=== PATIENT | male | born 1960 | race Caucasian/White ===

== ENCOUNTER → 2016-05-07 | Outpatient (CLI) | payer OTHER ==
[~2016-05-07] MED LIST: ALFU10TA30 PO; ASPI-232 PO; ATOR10TA88 PO; DIPH1TAB PO; FEXO1TAB46 PO; FLUO20CA35 PO; MISCCAP80 PO; MULTTAB PO; OMEG10007 PO; PRED20TA PO; SENNTAB23 PO; SERT50TA PO; ZNTT/150 PO; [UNRECOGNIZED DRUG - OTHER] PO
[2016-05-07 10:21] LABS: HEMATOCRIT 43.7 % (42-52); MEAN CELL VOLUME 88.8 fL (80-100); MEAN CORPUSCULAR HEMOGLOBIN 30.5 pg (25-34); MEAN CORPUSCULAR HGB CONC 34.3 g/dl (32-36); PLATELET COUNT 196 K/uL (130-400); RED BLOOD COUNT 4.92 M/uL (4.7-6.1); WHITE BLOOD COUNT 5.55 K/uL (4.8-10.8)
[2016-05-07 10:48] LABS: ALT/SGPT 36 U/L (12-78); AST/SGOT 15 U/L (15-37); BLOOD UREA NITROGEN 16 mg/dl (7-18); BUN/CREATININE RATIO 18.7 (10-20); CARBON DIOXIDE 27 mmol/L (21-32); CHLORIDE 109 mmol/L (98-107); CREATININE 0.86 mg/dl (0.60-1.40); GLUCOSE 109 mg/dl (70-99); SODIUM 144 mmol/L (136-145)
[2016-05-07 10:51] LABS: CHOLESTEROL 201 mg/dl (0-200); CHOLESTEROL/HDL RATIO 3.8; HDL CHOLESTEROL 53 mg/dl; LDL CHOLESTEROL CALCULATED 112 mg/dl; TRIGLYCERIDES 178 mg/dl (0-150); VERY LOW DENSITY LIPOPROT CALC 36 mg/dl
== END | disposition home or self-care (01) ==
LOC: C.LAB1850 08:57
PROVIDERS: ATTEND Internal Medicine
DX: Z01.818 Encounter for other preprocedural examination (principal); S62.611A Displaced fracture of proximal phalanx of left index finger, initial encounter for closed fracture; X58.XXXA Exposure to other specified factors, initial encounter

== ENCOUNTER → 2016-05-08 | Outpatient (CLI) | payer OTHER | END | disposition home or self-care (01) | LOC: C.CPL 08:52 | PROVIDERS: ATTEND Physician Assistant | DX: Z01.810 Encounter for preprocedural cardiovascular examination (principal); S62.611A Displaced fracture of proximal phalanx of left index finger, initial encounter for closed fracture; X58.XXXA Exposure to other specified factors, initial encounter ==

== ENCOUNTER → 2016-05-11 | Day surgery (SDC) | payer OTHER ==
[2016-05-08 08:13] VITALS: Ht 177.8 cm; Wt 122.7 kg
[~2016-05-11] VITALS: Ht 177.8 cm; Wt 122.7 kg
[~2016-05-11] MED LIST changes: +ATROPINE SULFATE 0.1 MG/ML 5ML SYR IV PRN; +BUPIVACAINE/EPINEPHRINE 0.5% MPF 1:200,000 30 ML VIAL ONE; +CEFAZOLIN 3000 MG/65 ML D5W IV SCH; +DEXAMETHASONE SOD INJ 4 MG/ML VIAL ONE; +EpHEDrine SULFATE INJ 50 MG/ML AMP IV PRN; +FENTANYL CITRATE INJ 50 MCG/1 ML 2 ML VIAL ONE; +LACTATED RINGER'S 1000ML 1,000 ML IV SCH; +LIDOCAINE HCL 1% 20 ML VIAL ONE; +LIDOCAINE HCL 2% 2 ML VIAL (20MG/ML) ONE; +MIDAZOLAM HCL 1 MG/ML 2ML VIAL ONE; +MoRPHine SULFATE 2 MG/ML CARP IV PRN; +MoRPHine SULFATE 4 MG/ML 1 ML CARP\\VIAL IV PRN; +ONDANSETRON INJ 2 MG/ML 2 ML VIAL IV PRN; +ONDANSETRON INJ 2 MG/ML 2 ML VIAL ONE; +OXYCODONE/ACETAMINOPHEN 5-325 TAB PO PRN; +PROPOFOL IV EMULSION 10 MG/ML 20 ML VIAL IV ONE
--- NOTE | 2016-05-11 06:37 | History & Physical Bridge - SC ---
H&P Re-Evaluation Bridge Note: I have examined the patient, reviewed the History & Physical and in the interval since the performance of the History & Physical I have noted the following changes of clinical significance: No changes noted
--- NOTE | 2016-05-11 08:37 | Discharge Instructions-SurgCtr ---
Discharge Instructions Date of Service May 11, 2016. Visit Reason for Visit: Left Index Finger Proximal Interphalangeal Fx Discharge Discharge Diagnosis / Problem: Status post ORIF Left Index Finger fracture Discharge Goals Goal(s): Decrease discomfort, Improve function, Increase independence Medications Stopped Medications Name(s): Stopped ASA 81mg Wednesday05/06/16 Activity Recommendations Activity Limitations: per Instructions/Follow-up section Lifting Limitations: until after follow-up appointment (No more than a cup of coffee) Exercise/Sports Limitations: rest today (and tomorrow. Unlimited legs and core.) Shower/Bathe: may shower/bathe in 3 days Driving or Machine Use: Not while in splint and not while taking narcotics Anesthesia . Post Anesthesia Instructions: If you have had General Anesthesia or IV Sedation: * Do not drive today. * Resume driving when surgeon permits. * Do not make important decisions or sign legal documents today. * Call surgeon for: 1. Temperature elevations greater than 101 degrees F. 2. Uncontrollable pain. 3. Excessive bleeding. 4. Persistent nausea and vomiting. 5. Medication intolerance (nausea, vomiting or rash). * For nausea and vomiting use only clear liquids such as: tea, soda, bouillon until nausea subsides, then gradually increase diet as tolerated. * If you have any concerns or questions, call your surgeon's office. If physician is unavailable and it is an emergency, call 911 or go to the nearest emergency room. . Instructions / Follow-Up Instructions / Follow-Up Dr. Colón in 10-15 days. PT in 2-3 days. Diet Recommendations Home Diet: resume previous diet Procedures Procedures Performed: Left Index Finger Open Reduction Internal Fixation Pending Studies Studies pending at discharge: no Work Instructions Additional Instructions: Return to work within 1-2 weeks depending on ability to drive. Medical Emergencies . Who to Call and When: Medical Emergencies: If at any time you feel your situation is an emergency, please call 911 immediately. . Non-Emergent Contact Non-Emergency issues call your: Surgeon Call Non-Emergent contact if: temperature is above 101.5, your pain is not controlled, wound has increased drainage, wound has increased redness . . "Provider Documentation" section prepared by Delfino Colón.
--- NOTE | 2016-05-11 08:40 | [facility] Operative Report ---
Operative Report Operative Date May 11, 2016. Pre-Operative Diagnosis Left Index Finger Proximal Interphalangeal Fracture Post-Operative Diagnosis Same Procedure(s) Performed Left Index Finger Open Reduction Internal Fixation Surgeon Dr. Julissa Colón Bindery Helper Surgeon(s) Dr. Darrin Zhang Estimated Blood Loss 3 cc Findings Displaced Left IF P1 fracture. Fluids (cc crystalloids) 1000 Specimens None Drains n/a Anesthesia LMA Complication(s) None Disposition Recovery Room / PACU (Stable) Implants 1.5 mm Cortical screws (11 & 12 mm from [employer] Mini-modular hand set). Indications The patient is a 56 year old male with a displaced left index finger proximal phalanx fracture, that I recommended surgical fixation. The patient understands the risks of surgery, which include but are not limited to: bleeding, infection , re-operation, damage to nerves and arteries, continued pain, progression of arthritis, mal-union, non-union, and stiffness. The patient understands all of these instructions and explanations, all of their questions have been satisfactorily addressed. The patient has elected to proceed with surgery and the informed consent was signed. Description of Procedure The patient was taken to the Operating Room and placed in the supine position on the operating table. After general anesthetic was administered a multidisciplinary time-out was performed identifying my initials on the left index finger as the correct and operative limb. Prior to the incision being made, 3 grams of intravenous Ancef were given. The left upper extremity was prepped and draped in the usual orthopaedic sterile fashion. The planned incision over the dorsum of the index proximal phalanx was marked and was then injected with 3 cc of a 50:50 mix of 1% Lidocaine with epi and 0.5 % Bupivacaine plain in addition a digital nerve block was performed using another 5cc of the above mixture. An Esmarch was used to exsanguinate the limb and a tourniquet was inflated to 250mmHg. The planned incision was carried down to the extensor mechanism. The extensor tendon was split centrally to expose the periosteum of the proximal phalanx. The fracture site was easily identified. The fragments were debrided of hematoma with dental pick, irrigation and suction. The two fragments were reduced with a pointed reduction clamp and confirmed with fluoroscopy. Two 1.5 mm lag screws were placed perpendicular to the fracture line in the standard fashion. The wound was copiously irrigated. Final Fluoro images were obtained showing near anatomic reduction with good placement of the screws. The periosteum was closed over the plate with 3-0 Vicryl. The extensor was closed with 3-0 Ti-Cron. The skin was closed with 4-0 Nylon using horizontal mattress stitch. The wound was dressed with Xeroform gauze, sterile gauze, sterile Marvin, sterile Webril, and a Radial gutter splint was placed. The sponge and needle counts were correct. He was taken to the recovery room in stable condition. Post-op Instructions: Pain medicine prescription was given pre-operatively to be taken as needed. The patient will follow up with me in 10-15 days. I attest to the content of the Intraoperative Record and any orders documented therein. Any exceptions are noted below.
[2016-05-11] MEDS: FENTANYL CITRATE INJ 50 MCG/1 ML 2 ML VIAL IV PRN ×2 (08:56→09:02)
[2016-05-11 09:22] VITALS: TEMP 36.4
--- NOTE | 2016-05-11 09:34 | Anesthesiology Progress Note ---
Anesthesia Post Op Note Date & Time May 11, 2016 at 09:34 Vital Signs Pain Intensity: 4 Vital Signs Past 12 Hours Date Time Temp Pulse Resp B/P Pulse Ox O2 Delivery O2 Flow Rate FiO2 05/11/16 09:16 36.7 71 13 05/11/16 09:16 71 13 96 05/11/16 09:15 132/81 05/11/16 09:11 74 8 96 05/11/16 09:11 74 8 05/11/16 09:10 127/80 05/11/16 09:06 73 3 05/11/16 09:06 72 3 94 05/11/16 09:05 133/81 05/11/16 09:01 69 13 99 05/11/16 09:01 69 13 05/11/16 09:00 132/82 05/11/16 08:56 72 3 99 05/11/16 08:56 72 3 05/11/16 08:55 133/80 05/11/16 08:51 70 14 99 05/11/16 08:51 70 14 05/11/16 08:50 134/79 05/11/16 08:47 36.4 75 16 137/67 99 Mask 6 05/11/16 08:46 75 8 05/11/16 08:46 75 8 99 05/11/16 06:35 36.8 81 18 158/98 97 Room Air Notes Mental Status: alert / awake / arousable, participated in evaluation Pt Amnestic to Procedure: Yes Nausea / Vomiting: adequately controlled Pain: adequately controlled Airway Patency, RR, SpO2: stable & adequate BP & HR: stable & adequate Hydration State: stable & adequate Anesthetic Complications: no major complications apparent
[2016-05-11 10:03] VITALS: BP 148/82; PULSE 67; O2SAT 95
== END | disposition home or self-care (01) ==
LOC: X.SURG 06:28
PROVIDERS: ATTEND Orthopaedic Surgery Sports Medicine
DX: S62.611A Displaced fracture of proximal phalanx of left index finger, initial encounter for closed fracture (principal); X58.XXXA Exposure to other specified factors, initial encounter; Y93.K1 Activity, walking an animal; E78.5 Hyperlipidemia, unspecified; M19.90 Unspecified osteoarthritis, unspecified site; E66.9 Obesity, unspecified; Z68.39 Body mass index [BMI] 39.0-39.9, adult; Z79.82 Long term (current) use of aspirin; Z79.899 Other long term (current) drug therapy

== ENCOUNTER → 2016-06-25 | Outpatient (CLI) | payer OTHER ==
[~2016-06-25] MED LIST changes: +ALFU10TA2 PO; -ALFU10TA30 PO; +ATOR10TA82 PO; -ATOR10TA88 PO; -ATROPINE SULFATE 0.1 MG/ML 5ML SYR IV PRN; -BUPIVACAINE/EPINEPHRINE 0.5% MPF 1:200,000 30 ML VIAL ONE; -CEFAZOLIN 3000 MG/65 ML D5W IV SCH; -DEXAMETHASONE SOD INJ 4 MG/ML VIAL ONE; -DIPH1TAB PO; +DIPH1TAB87 PO; -EpHEDrine SULFATE INJ 50 MG/ML AMP IV PRN; -FENTANYL CITRATE INJ 50 MCG/1 ML 2 ML VIAL ONE; -LACTATED RINGER'S 1000ML 1,000 ML IV SCH; -LIDOCAINE HCL 1% 20 ML VIAL ONE; -LIDOCAINE HCL 2% 2 ML VIAL (20MG/ML) ONE; -MIDAZOLAM HCL 1 MG/ML 2ML VIAL ONE; -MoRPHine SULFATE 2 MG/ML CARP IV PRN; -MoRPHine SULFATE 4 MG/ML 1 ML CARP\\VIAL IV PRN; -ONDANSETRON INJ 2 MG/ML 2 ML VIAL IV PRN; -ONDANSETRON INJ 2 MG/ML 2 ML VIAL ONE; -OXYCODONE/ACETAMINOPHEN 5-325 TAB PO PRN; -PROPOFOL IV EMULSION 10 MG/ML 20 ML VIAL IV ONE
== END | disposition home or self-care (01) ==
LOC: C.RDSM 14:18
PROVIDERS: ATTEND Orthopaedic Surgery Sports Medicine
DX: Z09 Encounter for follow-up examination after completed treatment for conditions other than malignant neoplasm (principal); M79.645 Pain in left finger(s)

== ENCOUNTER → 2016-08-06 | Outpatient (CLI) | payer OTHER | END | disposition home or self-care (01) | LOC: C.RDSM 15:44 | PROVIDERS: ATTEND Orthopaedic Surgery Sports Medicine | DX: M79.645 Pain in left finger(s) (principal) ==

== ENCOUNTER → 2016-09-11 | Outpatient (CLI) | payer OTHER ==
[~2016-09-11] MED LIST changes: -ALFU10TA2 PO; +ALFU10TA30 PO; -ATOR10TA82 PO; +ATOR10TA88 PO; +DIPH1TAB PO; -DIPH1TAB87 PO
--- NOTE | 2016-09-11 17:42 | DIAGNOSTIC IMAGING REPORT ---
KUB HISTORY: 56 years-old Male N20.0 Nephrolithiasis COMPARISON: IVP 08/26/2015 TECHNIQUE: KUB radiograph FINDINGS: Large calcification of the mid lower pelvis is again seen compatible with a prostatic calcification. There is no evidence of nephrolithiasis or ureteral calculi. The bowel gas pattern is nonobstructive. There is moderate volume of formed stool throughout the colon. There is mild convex left curvature of the lumbar spine without fracture. IMPRESSION: No evidence of nephrolithiasis or ureteral calculi. The above report was generated using voice recognition software. It may contain grammatical, syntax or spelling errors. Electronically signed by: Benjy Chavez M.D. 09/11/2016 5:41 PM Dictated Date/Time: 09/11/2016 5:39 PM
== END | disposition home or self-care (01) ==
LOC: C.RAD 17:17
PROVIDERS: ATTEND Urology
DX: N40.0 Benign prostatic hyperplasia without lower urinary tract symptoms (principal); N20.0 Calculus of kidney

== ENCOUNTER → 2016-11-09 | Outpatient (CLI) | payer OTHER ==
[2016-11-12 22:43] LABS: BEEF CLASS 0; BEEF IGE <0.10 KU/L; CASHEW CLASS 0; CASHEW IGE <0.10 KU/L; CHOCOLATE CLASS 0; CHOCOLATE IGE <0.10 KU/L; CLAM CLASS 0; CLAM IGE <0.10 KU/L; CORN CLASS 0/1; CORN IGE 0.15 KU/L; CRAB CLASS 0; CRAB IGE <0.10 KU/L; EGG MIX CLASS 0/1; HAZELNUT CLASS 0/1; LOBSTER CLASS 0; LOBSTER IGE <0.10 KU/L; PEANUT IGE <0.10 KU/L; PECAN NUT CLASS 0; PECAN NUT IGE <0.10 KU/L; PISTACHIO CLASS 0; PISTACHIO IGE <0.10 KU/L; PORK CLASS 0/1; PORK IGE 0.14 KU/L; RAST ALMOND CLASS 0; RAST ALMOND IGE <0.10 KU/L; RAST BRAZIL NUT CLASS 0/1; RAST BRAZIL NUT IGE 0.17 KU/L; SHRIMP CLASS 0/1; SOY CLASS 0; SOY IGE <0.10 KU/L; STRAWB ALLERGEN IGE 0.37 KU/L; STRAWB CLASS 1; WALNUT CLASS 0; WHEAT CLASS 0; WHEAT IGE <0.10 KU/L
== END | disposition home or self-care (01) ==
LOC: C.LAB1850 15:29
PROVIDERS: ATTEND Internal Medicine Pulmonary Disease
DX: T78.3XXA Angioneurotic edema, initial encounter (principal); X58.XXXA Exposure to other specified factors, initial encounter

== ENCOUNTER 2016-11-12 16:11 | Emergency (ER) | payer OTHER ==
[~2016-11-12] VITALS: Ht 177.8 cm; Wt 118.0 kg
[~2016-11-12 16:11] MED LIST changes: -DIPH1TAB PO; -FLUO20CA35 PO; -MISCCAP80 PO; -PRED20TA PO; -SENNTAB23 PO; -ZNTT/150 PO
[2016-11-12 16:12] VITALS: TEMP 36.5; Ht 177.8 cm; Wt 118.0 kg
[2016-11-12] MEDS ORDERED: RANITIDINE HCL 50 MG/100 ML D5W IV STA (16:28)
[2016-11-12] MEDS ORDERED: SODIUM CHLORIDE 0.9% 1000ML 1,000 ML IV STA (16:28)
[2016-11-12] MEDS ORDERED: DEXAMETHASONE SOD INJ 4 MG/ML VIAL IV STA (16:28)
[2016-11-12] MEDS ORDERED: DiphenhydrAMINE HCL 50 MG/ML VIAL IV STA (16:28)
--- NOTE | 2016-11-12 16:32 | EMERGENCY ROOM VISIT NOTE ---
History Report prepared by Colt: Nadia Cowan Under the Supervision of: Dr. Gary Ramires M.D. First contact with patient: 16:23 Chief Complaint: ALLERGIC REACTION Stated Complaint: ALLERGIC REACTION- SWELLED UPPER LIP Nursing Triage Summary: pt to the ED with c/o upper lip swelling that happened on last sat as well saw Dr lake and he did blood work pt doesnt take lisinopril took 2 benedryl at 2pm no difficulty swallowing History of Present Illness The patient is a 56 year old male who presents to the Emergency Room with complaints of a sudden allergic reaction beginning 5 days ago. The patient states that his lower lip swelled up 5 days ago. He reports that he went to [facility] and was discharged on prednisone, Pepcid, and Benadryl. He states that the lower lip swelling went away. He states that he did not take the Pepcid or Benadryl today, and that he finished the prednisone yesterday. Today he presents with a swollen upper lip. He reports that he has seasonal allergies , but has never had anything like this before. He denies any bug bites and trying new food. The patient denies chest pain, shortness of breath, fevers, chills, constipation, diarrhea, and trouble swallowing. The patient denies being on Lisinopril. Source of History: patient Onset: 5 days ago Position: lip Quality: other (allergic reaction ) Timing: other (sudden) Associated Symptoms: No chest pain, No SOB, No nausea, No vomiting, No diarrhea Review of Systems See HPI for pertinent positives and negatives. A total of ten systems were reviewed and were otherwise negative. Past Medical & Surgical Medical Problems: (1) enlarged prostate Family History No pertinent family history stated. Social History Smoking Status: Never Smoker Alcohol Use: occasionally Marital Status: in relationship Housing Status: lives with significant other Occupation Status: employed Current/Historical Medications Scheduled Alfuzosin Hcl (Uroxatral), 10 MG PO QAM Aspirin (Aspir-81), 81 MG PO QAM Atorvastatin (Lipitor), 10 MG PO QAM Fish Oil ([place]-3), 1 CAP PO QAM Fluoxetine (Prozac), 20 MG PO HS Multivitamins/Minerals (Mvi With Minerals), 1 TAB PO QAM Prednisone (Prednisone), 0 PO DAILY Probiotic Product (Probiotic), 1 CAP PO DAILY Ranitidine (Zantac), 1 TAB PO BID [Betasisterol], 1 TAB PO QAM Scheduled PRN Diphenhydramine Hcl (Benadryl Allergy), 1 TAB PO QID PRN for Itching Fexofenadine Hcl (Radha), 180 MG PO QAM PRN for ALLERGIES Sennosides-Docusate Sodium (Stool Softener), 1 TAB PO DAILY PRN for Constipation Allergies Coded Allergies: No Known Allergies (Unverified , 11/12/16) Physical Exam Vital Signs Date Time Temp Pulse Resp B/P (MAP) Pulse Ox O2 Delivery O2 Flow Rate FiO2 11/12/16 20:20 76 16 123/78 97 11/12/16 18:47 58 18 130/78 98 Room Air 11/12/16 17:30 59 11/12/16 16:46 100 Room Air 11/12/16 16:46 100 Room Air 11/12/16 16:12 36.5 64 18 152/87 97 Room Air Physical Exam GENERAL: Awake, alert, well-appearing, in no distress HENT: Normocephalic, atraumatic. Angioedema of upper lip, but no tongue elevation or trismus. No edema of the posterior pharynx. No stridor on auscultation. No pain with tracheal manipulation. EYES: Normal conjunctiva. Sclera non-icteric. NECK: Supple. No nuchal rigidity. FROM. No JVD. RESPIRATORY: Clear to auscultation. CARDIAC: Regular rate, normal rhythm. Extremities warm and well perfused. Pulses equal. ABDOMEN: Soft, non-distended. No tenderness to palpation. No rebound or guarding. No masses. RECTAL: Deferred. MUSCULOSKELETAL: Chest examination reveals no tenderness. The back is symmetrical on inspection without obvious abnormality. There is no CVA tenderness to palpation. No joint edema. LOWER EXTREMITIES: Calves are equal size bilaterally and non-tender. No edema. No discoloration. NEURO: Normal sensorium. No sensory or motor deficits noted. SKIN: No rash or jaundice noted. Medical Decision & Procedures Medications Administered Medications (Trade) Dose Ordered Sig/Geraldine Route Start Time Stop Time Status Last Admin Dose Admin Ranitidine HCl (zANTac IV) 50 mg NOW STAT IV 11/12/16 16:28 11/12/16 16:30 DC 11/12/16 16:40 50 MG Sodium Chloride 1,000 ml @ 999 mls/hr Q1H1M STAT IV 11/12/16 16:28 11/12/16 17:28 DC 11/12/16 16:40 999 MLS/HR Diphenhydramine HCl (Benadryl Inj) 50 mg NOW STAT IV 11/12/16 16:28 11/12/16 16:30 DC 11/12/16 16:41 50 MG Dexamethasone Sodium Phosphate (Decadron Inj) 10 mg NOW STAT IV 11/12/16 16:28 11/12/16 16:30 DC 11/12/16 16:41 10 MG ED Course 1624: The patient was evaluated in room B6. A complete history and physical exam was performed. 1627: Ordered Decadron Inj 10 mg IV, Benadryl Inj 50 mg IV, Sodium Chloride 1, 000 ml @ 999 mls/hr IV, Ranitidine HCl 50 mg IV. 1954: I checked on the patient and he is feeling better. 2009: I reevaluated the patient. Discussed results and discharge instructions: He verbalized understanding and agreement. The patient is ready for discharge. Medical Decision I reviewed the patient's past medical history, medications, and the nursing notes as described above.\ Differentials include: angioedema, allergic reaction, and anaphylaxis. The patient is a 48-year-old gentleman with a past medical history of [facility] emergency Department with angioedema of his upper lip in the setting of being seen at an outside hospital last week for angioedema of his lower lip history of present illness. Arrival patient is in no acute distress, afebrile with stable vital signs. EKG edema of the upper lip is present however no oral pharyngeal involvement without tongue elevation or trismus or edema in the posterior pharynx. No stridor or wheezing. She was given dexamethasone, Benadryl, Zantac good affect and significant improvement of his angioedema. The patient is already following with aircraft metalsmith who he saw yesterday and results are pending. Findings and plan for follow-up d/w patient. Patient agreeable and d/c'd per discharge instructions. Medication Reconcilliation Current Medication List: was personally reviewed by me Blood Pressure Screening Patient's blood pressure: Normal blood pressure Impression Primary Impression: Angio-edema Scribe Attestation The scribe's documentation has been prepared under my direction and personally reviewed by me in its entirety. I confirm that the note above accurately reflects all work, treatment, procedures, and medical decision making performed by me. Departure Information Dispostion Home / Self-Care Prescriptions Diphenhydramine Hcl (BENADRYL ALLERGY) 25 Mg Tab 1 TAB PO QID Y for Itching for 7 Days, #28 TABS Prov: Gary Ramires M.D. 11/12/16 Ranitidine (Zantac) 150 Mg Tab 1 TAB PO BID for 14 Days, #28 TAB 3 Refills Prov: Gary Ramires M.D. 11/12/16 Prednisone (Prednisone) 20 Mg Tab 0 PO DAILY, #14 TAB 3 TABS DAILY FOR 2 DAYS, THEN 2 TABS DAILY FOR 2 DAYS, THEN 1 TAB DAILY FOR 2 DAYS, THEN 1/2 TAB DAILY FOR 2 DAYS. Prov: Gary Ramires M.D. 11/12/16 Referrals No Doctor, Assigned (PCP) Forms HOME CARE DOCUMENTATION FORM, IMPORTANT VISIT INFORMATION Patient Instructions ED Angioedema, [facility] Additional Instructions Please follow up with your primary care physician and your aircraft metalsmith in the next 1-3 days for re-evaluation. Your symptoms improved with treatment. Otherwise, your exam did not show signs of an emergent condition at this time. Take prednisone, benadryl, and Zantac as directed. Return to the emergency department for worsening symptoms as described in the accompanying instructions.
[2016-11-12 16:46] VITALS: O2SAT 100
[2016-11-12] MEDS ORDERED: FLUO20CA35 PO (17:04)
[2016-11-12] MEDS ORDERED: SENNTAB23 PO (17:05)
[2016-11-12] MEDS ORDERED: MISCCAP80 PO (17:05)
[2016-11-12] MEDS ORDERED: ZNTT/150 PO (20:14)
[2016-11-12] MEDS ORDERED: DIPH1TAB PO (20:14)
[2016-11-12] MEDS ORDERED: PRED20TA PO (20:14)
[2016-11-12 20:20] VITALS: BP 123/78; PULSE 76; O2SAT 97
== END 2016-11-12 20:21 | disposition home or self-care (01) ==
LOC: C.EDB 16:12
DX: T78.3XXA Angioneurotic edema, initial encounter (principal); X58.XXXA Exposure to other specified factors, initial encounter; N40.0 Benign prostatic hyperplasia without lower urinary tract symptoms; Z79.82 Long term (current) use of aspirin

== ENCOUNTER → 2016-11-24 | Outpatient (CLI) | payer OTHER ==
[~2016-11-24] MED LIST changes: +DIPH1TAB PO; +FLUO20CA35 PO; +MISCCAP80 PO; +PRED20TA PO; +SENNTAB23 PO; -SERT50TA PO; +ZNTT/150 PO
[2016-11-24 12:43] LABS: ESTIMATED AVERAGE GLUCOSE 117 mg/dl; HA1C FLAG Normal (Normal)
[2016-11-24 12:49] LABS: ALT/SGPT 29 U/L (12-78); AST/SGOT 10 U/L (15-37); BLOOD UREA NITROGEN 17 mg/dl (7-18); BUN/CREATININE RATIO 21.2 (10-20); CALCIUM 8.7 mg/dl (8.5-10.1); CARBON DIOXIDE 26 mmol/L (21-32); CHLORIDE 107 mmol/L (98-107); CREATININE 0.81 mg/dl (0.60-1.40); GLUCOSE 94 mg/dl (70-99); POTASSIUM 4.1 mmol/L (3.5-5.1); SODIUM 139 mmol/L (136-145)
[2016-11-24 12:52] LABS: CHOLESTEROL 191 mg/dl (0-200); CHOLESTEROL/HDL RATIO 3.2; HDL CHOLESTEROL 60 mg/dl; LDL CHOLESTEROL CALCULATED 76 mg/dl; TRIGLYCERIDES 277 mg/dl (0-150); VERY LOW DENSITY LIPOPROT CALC 55 mg/dl
== END | disposition home or self-care (01) ==
LOC: C.LAB1850 11:02
PROVIDERS: ATTEND Internal Medicine
DX: R73.9 Hyperglycemia, unspecified (principal); E78.5 Hyperlipidemia, unspecified

== ENCOUNTER → 2016-12-03 | Outpatient (CLI) | payer OTHER ==
[2016-12-07 12:28] LABS: C1 ESTERASE INHIB TC298 34 mg/dL (21-39)
== END | disposition home or self-care (01) ==
LOC: C.LAB1850 14:13
PROVIDERS: ATTEND Physician Assistant Medical
DX: T78.3XXA Angioneurotic edema, initial encounter (principal); X58.XXXA Exposure to other specified factors, initial encounter

== ENCOUNTER → 2017-03-08 | Outpatient (CLI) | payer OTHER ==
[~2017-03-08] MED LIST changes: +ALFU10TA2 PO; -ALFU10TA30 PO; +ATOR10TA82 PO; -ATOR10TA88 PO; -DIPH1TAB PO; +DIPH1TAB87 PO
== END | disposition home or self-care (01) ==
LOC: C.RDSM 13:00
PROVIDERS: ATTEND Physical Medicine & Rehabilitation Sports Medicine
DX: M17.0 Bilateral primary osteoarthritis of knee (principal)

== ENCOUNTER → 2017-04-19 | Outpatient (CLI) | payer OTHER ==
[~2017-04-19] MED LIST changes: +RANI150T85 PO; -ZNTT/150 PO
[2017-04-19 09:49] LABS: HEMOGLOBIN A1C 5.7 % (4.5-5.6)
[2017-04-19 09:52] LABS: ALT/SGPT 25 U/L (12-78); AST/SGOT 11 U/L (15-37); BLOOD UREA NITROGEN 16 mg/dl (7-18); CALCIUM 9.4 mg/dl (8.5-10.1); CARBON DIOXIDE 24 mmol/L (21-32); CREATININE 0.86 mg/dl (0.60-1.40); GLUCOSE 114 mg/dl (70-99); POTASSIUM 3.8 mmol/L (3.5-5.1); SODIUM 140 mmol/L (136-145)
[2017-04-19 10:04] LABS: CHOLESTEROL 182 mg/dl (0-200); LDL CHOLESTEROL CALCULATED 92 mg/dl
== END | disposition home or self-care (01) ==
LOC: C.LAB1850 07:51
PROVIDERS: ATTEND Internal Medicine
DX: R73.9 Hyperglycemia, unspecified (principal); E78.5 Hyperlipidemia, unspecified

== ENCOUNTER → 2017-05-19 | Outpatient (CLI) | payer OTHER ==
[~2017-05-19] MED LIST changes: -PRED20TA PO
--- NOTE | 2017-05-19 13:11 | DIAGNOSTIC IMAGING REPORT ---
Brain MRA HISTORY: G50.0 Trigeminal neuralgia [id number] TECHNIQUE: 3-D [id number] MRA of the brain was performed without contrast. COMPARISON STUDY: Brain MRI 03/26/2010. FINDINGS: Visualized intracranial internal carotid arteries, distal vertebral arteries, and basilar artery are widely patent. There is no significant stenosis, occlusion, or aneurysm seen within the bilateral ACAs, MCAs, or system development engineer. IMPRESSION: No significant stenosis, occlusion, or aneurysm within the [place]. Electronically signed by: Aime Otero M.D. 05/19/2017 1:10 PM Dictated Date/Time: 05/19/2017 1:06 PM
--- NOTE | 2017-05-19 13:12 | DIAGNOSTIC IMAGING REPORT ---
BRAIN WITHOUT CONTRAST CLINICAL HISTORY: 57 years-old Male presenting with G50.0 Trigeminal neuralgia, facial numbness for 6 months. TECHNIQUE: Multisequence, multiplanar MR imaging of the brain was performed without the use of intravenous contrast. IV contrast: None. COMPARISON: 03/25/2010. FINDINGS: Meckel's caves are symmetric. Normal thickness of the bilateral trigeminal ganglia. Bilateral internal auditory canals with transiting nerves are also normal. Normal signal intensity of the inner ears structures. Ventricles and sulci normal in size. Brain parenchyma normal in appearance with preserved tolentino-white differentiation. No mass effect or midline shift. No restricted diffusion to suggest acute ischemia. No hemorrhage. No extra-axial fluid collection. T2 skull base flow voids preserved. Bone marrow signal intensity within the calvarium within normal limits. Trace fluid noted in the bilateral maxillary sinuses. IMPRESSION: 1. No acute intracranial abnormality. Normal noncontrast appearance of the trigeminal ganglia. Electronically signed by: Alfonso Robison M.D. 05/19/2017 1:11 PM Dictated Date/Time: 05/19/2017 1:06 PM
== END | disposition home or self-care (01) ==
LOC: C.CPL 11:46
PROVIDERS: ATTEND Internal Medicine
DX: R06.09 Other forms of dyspnea (principal); G50.0 Trigeminal neuralgia

== ENCOUNTER → 2017-05-26 | Outpatient (CLI) | payer OTHER ==
[~2017-05-26] MED LIST changes: +PERFLUTREN LIPID MICROSPHERE (DEFINITY) IV ONE
--- NOTE | 2017-05-26 17:26 | EXERCISE STRESS ECHO ---
*NOTICE TO RECEIVING LIBERTARIAN AGENCY This information is strictly Confidential and protected under [place] law. [place] law prohibits you from making any further disclosure of this information unless further disclosure is expressly permitted by the written consent of the person to whom it pertains or is authorized by law. A general authorization for the release of medical or other information is not sufficient for this purpose. Hospital accepts no responsibility if the information is made available to any other person, INCLUDING THE PATIENT. Interpretation Summary * Name: SARANYA DE LEON Study Date: 05/26/2017 09:38 AM BP: 138/90 mmHg * Patient Location: [facility] HR: 73 * : 1960 (M/d/yyyy) Gender: Male Height: 70 in * Age: 57 yrs Ethnicity: [place] Weight: 260 lb * Ordering Physician: Jake Mujica * Referring Physician: Jake Mujica * Performed By: Crystal Castaneda RDCS * * Reason For Study: DYSPNEA ON EXERTION * BSA: 2.3 m2 * -- Conclusions -- * 1. Negative exercise stress echo for ischemia at 97 % MPHR. * 2. Negative stress ECG for ischemia. * 3. Average functional capacity. Exercised 6:15 min, acheiving 7.3 METS. * 4. No exercise induced chest pain. Normal hemodynamic response to exercise. * 5. Normal resting LV size and function. Asymmetric basal septal hypertrophy. EF 55-60 %. Grade 1 diastolic dysfunction. Mildly dilated RV with normal function. No significant valvular pathology. Procedure Details * ECHOEX, CPT #[id number] * ECHO DOPPLER, CPT #[id number] * ECHO COLOR FLOW, CPT #[id number] * A contrast injection of Definity was performed to improve assessment of LV function. * Contrast was injected into an intravenous site in the left arm. * One vial of Definity ultrasound contrast was diluted in normal saline to a total volume of 10 ml. A total of '4' ml of solution was administered during imaging. * Lot # [id number] of Definity utilized for procedure. * Expiration date 06/03. * The attending nurse who injected the contrast agent was MIKALA HAQUE RN. Left Ventricular Findings with Stress * This was essentially a normal study. Left Ventricle * The left ventricle is grossly normal size. * There is moderate asymmetric left ventricular hypertrophy. * Ejection Fraction = 55-60%. Right Ventricle * The right ventricle is mildly dilated. * The right ventricular systolic function is normal as assessed by tricuspid annular plane systolic excursion (TAPSE) (normal >1.5 cm). Atria * The left atrial size is normal. * The right atrium is mildly dilated. * No ASD detected; PFO is not assessed. Mitral Valve * The mitral valve is grossly normal. * There is no mitral valve stenosis. * Significant mitral regurgitation is absent. Aortic Valve * The aortic valve is not well visualized. * No hemodynamically significant valvular aortic stenosis. * There is no significant aortic regurgitation. Pulmonic Valve * The pulmonary valve is inadequately visualized, but the Doppler data is adequate for interpretation. * Trace pulmonic valvular regurgitation. Great Vessels * The aortic root and proximal ascending aorta are normal sized. Pericardium * There is no pericardial effusion. Stress Parameters * Normal baseline electrocardiogram. * Stress ECG: No ST changes. No arrhythmias. * No arrhythmia were noted with stress. * Rest heart rate was '73' BPM. * Rest blood pressure was '138/90' * Maximum heart rate achieved was 157 bpm. * Maximum heart rate was 97 % of maximum age-predicted heart rate. * Maximum blood pressure was '198/79' * Total exercise time was '6:15' * Maximum exercise MET level achieved was '7.3' METS * Maximum treadmill speed was '3.30' miles per hour. * Maximum treadmill elevation was '14.00'% grade. * Exercise was terminated due to 'target heart rate achieved' * The patient exhibited dyspnea during exercise. Left Ventricular Findings with Stress * The study was technically good with many images being of high quality. Left Ventricular Diastolic Function * Grade I diastolic dysfunction, (abnormal relaxation pattern). MMode 2D Measurements and Calculations IVSd 2.0 cm IVSs 2.4 cm LVIDd 4.1 cm LVIDs 2.9 cm LVPWd 1.1 cm LVPWs 1.8 cm IVS/LVPW 1.9 FS 30.9 % EDV(Teich) 75.6 ml ESV(Teich) 31.0 ml EF(Teich) 59.0 % EDV(cubed) 70.6 ml ESV(cubed) 23.3 ml EF(cubed) 67.0 % % IVS thick 22.0 % % LVPW thick 73.5 % LV mass(C)d 251.9 grams LV mass(C)dI 107.9 grams/m\S\2 LV mass(C)s 283.6 grams LV mass(C)sI 121.6 grams/m\S\2 SV(Teich) 44.6 ml SI(Teich) 19.1 ml/m\S\2 SV(cubed) 47.3 ml SI(cubed) 20.3 ml/m\S\2 ACS 1.5 cm LA dimension 4.8 cm asc Aorta Diam 3.4 cm LVOT diam 1.9 cm LVOT area 2.8 cm\S\2 LVAd ap4 44.2 cm\S\2 LVLd ap4 9.4 cm EDV(MOD-sp4) 166.6 ml EDV(sp4-el) 177.2 ml LVAs ap4 24.8 cm\S\2 LVLs ap4 6.9 cm ESV(MOD-sp4) 74.1 ml ESV(sp4-el) 75.9 ml EF(MOD-sp4) 55.6 % EF(sp4-el) 57.2 % LVAd ap2 35.8 cm\S\2 LVLd ap2 8.9 cm EDV(MOD-sp2) 118.5 ml EDV(sp2-el) 122.0 ml LVAs ap2 22.0 cm\S\2 LVLs ap2 7.7 cm ESV(MOD-sp2) 52.3 ml ESV(sp2-el) 53.3 ml EF(MOD-sp2) 55.9 % EF(sp2-el) 56.3 % LVLd %diff -5.11 % EDV(MOD-bp) 145.4 ml LVLs %diff 10.6 % ESV(MOD-bp) 62.9 ml EF(MOD-bp) 56.7 % SV(MOD-sp4) 92.6 ml SI(MOD-sp4) 39.7 ml/m\S\2 SV(MOD-sp2) 66.2 ml SI(MOD-sp2) 28.4 ml/m\S\2 SV(MOD-bp) 82.5 ml SI(MOD-bp) 35.4 ml/m\S\2 SV(sp4-el) 101.3 ml SI(sp4-el) 43.4 ml/m\S\2 SV(sp2-el) 68.7 ml SI(sp2-el) 29.4 ml/m\S\2 Doppler Measurements and Calculations MV E max jya 57.8 cm/sec MV A max jay 73.1 cm/sec MV E/A 0.79 MV dec time 0.30 sec Ao V2 max 118.2 cm/sec Ao max PG 5.6 mmHg Ao max PG (full) 1.2 mmHg KESHA(V,A) 2.5 cm\S\2 KESHA(V,D) 2.5 cm\S\2 LV V1 max PG 4.4 mmHg LV V1 max 104.3 cm/sec PA V2 max 76.6 cm/sec PA max PG 2.3 mmHg
== END | disposition home or self-care (01) ==
LOC: C.CPL 09:31
PROVIDERS: ATTEND Internal Medicine
DX: I42.2 Other hypertrophic cardiomyopathy (principal); I50.30 Unspecified diastolic (congestive) heart failure; R06.09 Other forms of dyspnea

== ENCOUNTER → 2017-06-25 | Outpatient (CLI) | payer OTHER ==
[~2017-06-25] MED LIST changes: -PERFLUTREN LIPID MICROSPHERE (DEFINITY) IV ONE
== END | disposition home or self-care (01) ==
LOC: C.LAB1850 12:37
PROVIDERS: ATTEND Psychiatry & Neurology Neurology
DX: R20.0 Anesthesia of skin (principal)

== ENCOUNTER → 2017-06-29 | Outpatient (CLI) | payer OTHER | END | disposition home or self-care (01) | LOC: C.LAB1850 13:20 | PROVIDERS: ATTEND Psychiatry & Neurology Neurology | DX: R76.8 Other specified abnormal immunological findings in serum (principal) ==

== ENCOUNTER → 2017-09-01 | Outpatient (CLI) | payer OTHER ==
[2017-09-01 15:10] LABS: BLOOD UREA NITROGEN 14 mg/dl (7-18)
== END | disposition home or self-care (01) ==
LOC: C.LAB1850 12:57
PROVIDERS: ATTEND Urology
DX: N20.0 Calculus of kidney (principal)

== ENCOUNTER → 2017-09-01 | Outpatient (CLI) | payer OTHER ==
--- NOTE | 2017-09-01 16:38 | DIAGNOSTIC IMAGING REPORT ---
KUB CLINICAL HISTORY: N20.0 Nephrolithiasis nephrocalcinosis COMPARISON STUDY: 09/11/2016 FINDINGS: No change in the prostate calcifications described previously. Several pelvic vascular calcifications. Nonobstructive bowel pattern. No significant calcifications involving the upper urinary tracts. IMPRESSION: Negative study. Unchanged prostate calcification The above report was generated using voice recognition software. It may contain grammatical, syntax or spelling errors. Electronically signed by: J Carlos Larkin M.D. 09/01/2017 4:37 PM Dictated Date/Time: 09/01/2017 4:36 PM
== END | disposition home or self-care (01) ==
LOC: C.RAD 16:22
PROVIDERS: ATTEND Urology
DX: N20.0 Calculus of kidney (principal)

== ENCOUNTER 2022-12-15 05:19 | Observation (INO) ==
--- NOTE | 2022-11-17 12:17 | PAT Medication Instructions ---
Medication Instructions Date of Service November 17, 2022 Home Medications Medication Instructions Recorded alprazolam 0.5 mg tablet (Xanax) 0.5 mg PO DAILY PRN anxiety #30 05/08/21 tabs fluoxetine 20 mg capsule (Prozac) 20 mg PO QAM #90 caps 11/06/21 alfuzosin 10 mg tablet,extended 10 mg PO QAM 90 days #90 tabs 02/25/22 release 24 hr (Uroxatral) naproxen 500 mg tablet (Naprosyn) 500 mg PO DAILY PRN pain #90 tabs 04/10/22 atorvastatin 10 mg tablet 10 mg PO QAM #90 tabs 09/28/22 Medication List: fexofenadine-pseudoephedrine ER 180 mg-240 mg tablet,ext.release 24 hr (Radha- D 24 Hour) 1 tab PO QAM alprazolam 0.5 mg tablet (Xanax) 0.5 mg PO DAILY PRN anxiety fluoxetine 20 mg capsule (Prozac) 20 mg PO QAM alfuzosin 10 mg tablet,extended release 24 hr (Uroxatral) 10 mg PO QAM naproxen 500 mg tablet (Naprosyn) 500 mg PO DAILY PRN pain atorvastatin 10 mg tablet 10 mg PO QAM Medical Marijuana 1 dose inhalation DAILY PRN Anxiety cholecalciferol (vitamin D3) 25 mcg (1,000 unit) tablet (Vitamin D3) 25 mcg PO QAM losartan 25 mg tablet 25 mg PO QAM multivitamin 1 tab PO QAM MEDICATION INSTRUCTIONS: ASK your surgeon for instructions naproxen 500 mg tablet (Naprosyn) 500 mg PO DAILY PRN pain DO NOT take the morning of surgery cholecalciferol (vitamin D3) 25 mcg (1,000 unit) tablet (Vitamin D3) 25 mcg PO QAM losartan 25 mg tablet 25 mg PO QAM Medical Marijuana 1 dose inhalation DAILY PRN Anxiety fexofenadine-pseudoephedrine ER 180 mg-240 mg tablet,ext.release 24 hr (Radha- D 24 Hour) 1 tab PO QAM multivitamin 1 tab PO QAM Take morning of surgery With a small sip of water, OTHERWISE NOTHING TO EAT OR DRINK AFTER MIDNIGHT: atorvastatin 10 mg tablet 10 mg PO QAM alprazolam 0.5 mg tablet (Xanax) 0.5 mg PO DAILY PRN anxiety fluoxetine 20 mg capsule (Prozac) 20 mg PO QAM alfuzosin 10 mg tablet,extended release 24 hr (Uroxatral) 10 mg PO QAM Take evening before surgery Medical Marijuana 1 dose inhalation DAILY PRN Anxiety (if needed) alprazolam 0.5 mg tablet (Xanax) 0.5 mg PO DAILY PRN anxiety (if needed) Other Notes If you have any questions please call us at [phone] or [phone] or [phone] or [phone]
--- NOTE | 2022-11-23 09:16 | Anesthesiology Consultation ---
Date of Service November 23, 2022 Assessment & Plan (1) Encounter for pre-operative examination: - awaiting surgeon ordered [place] cardiology clearance 11/25/22. - allergy visit 08/31/22 [place]: "...Allergic contact dermatitis: Patch testing to metals was negative. He was also patch tested to a TRUE test panel and these were negative as well. As result, I do not have any worries about any exposures as part of surgery that would exacerbate an allergic contact dermatitis and he is cleared to get which ever product orthopedics would prefer. Allergic rhinitis due to animals: He will contact me if his allergic rhinitis symptoms worsen. Chronic idiopathic urticaria: He has not had any more episodes of idiopathic angioedema. If this ever comes back again, I recommend that he start taking a second-generation antihistamine like cetirizine and he will give me a call..." Chart Review Chart Review: Pending: Refer to Additional Notes / Consult section and Patient seen in Pre Admission Testing Teaching & Discussion Pre-Anesthesia Teaching/Discussion Notes: Instructed NPO after midnight before surgery, except medications with 15 cc of water. Medication instructions provided according to the PAT guidelines. History Surgery Operation Date: 12/15/22 07:00 Proposed Procedures p Left Total Knee Arthroplasty - Alfonso Dawn MD Height/Weight Height: 5 ft 10 in Weight: 113.9 kg Allergies Allergy/AdvReac Type Severity Reaction Status Date / Time No Known Drug Allergies Allergy Unknown Verified 11/16/22 12:48 Medications Home Medications Medication Instructions Recorded Confirmed Last Taken fexofenadine-pseudoephedrine ER 1 tab PO QAM 07/18/20 11/16/22 01/19/21 180 mg-240 mg tablet,ext.release 24 hr (Radha-D 24 Hour) alprazolam 0.5 mg tablet (Xanax) 0.5 mg PO DAILY PRN anxiety #30 05/08/21 11/16/22 Unknown tabs fluoxetine 20 mg capsule (Prozac) 20 mg PO QAM #90 caps 11/06/21 11/16/22 Unknown alfuzosin 10 mg tablet,extended 10 mg PO QAM 90 days #90 tabs 02/25/22 11/16/22 Unknown release 24 hr (Uroxatral) naproxen 500 mg tablet (Naprosyn) 500 mg PO DAILY PRN pain #90 tabs 04/10/22 11/16/22 Unknown atorvastatin 10 mg tablet 10 mg PO QAM #90 tabs 09/28/22 11/16/22 Unknown Medical Marijuana 1 dose inhalation DAILY PRN Anxiety 11/16/22 11/16/22 Unknown cholecalciferol (vitamin D3) 25 25 mcg PO QAM 11/16/22 11/16/22 Unknown mcg (1,000 unit) tablet (Vitamin D3) losartan 25 mg tablet 25 mg PO QAM 11/16/22 11/16/22 Unknown multivitamin 1 tab PO QAM 11/16/22 11/16/22 Unknown Additional Notes: Pt states he takes Radha D for seasonal allergies, not advised for idiopathic urticaria hx. Past Medical History Medical History Anxiety Depression Diverticulitis hx Enlarged prostate Hearing loss History of basal cell cancer s/p excision History of COVID-19 Suspected COVID 02/2020 (spouse tested positive/pt did not personally get tested) > symptoms at time of low grade fever, chills, body aches, decreased smell > recovered at home/symptoms resolved Hyperlipidemia Hypertension controlled, stable per pt Idiopathic urticaria hx, h/o angioedema 5+ years ago followed with immunology and was d/c by [facility] Internal hemorrhoids hx Left bundle branch block (LBBB) diagnosed 05/01/21--follows with Jovanny Mares Medical marijuana use Nephrolithiasis hx, last episode 5+ years ago Obesity Sleep apnea "Mild" > no device Patient denies h/o stroke, seizures, heart attack, heart failure, DM, blood clots/DVTs or blood transfusions. Exercise / Class Metabolic Activity II 4-5 Yardwork/Stairs/Walk up hill (denies chest discomfort or shortness of breath with 1 FOS) Past Family History Family History Grandfather Colorectal cancer Mother Rheumatoid arthritis Other No family history of adverse response to anesthesia Denies family history of Ovarian cancer Prostate cancer Myocardial infarction Breast cancer Past Surgical History Surgical History History of cardiac cath 05/14/21 @ [facility] for angina/LBBB--no stents placed---follows with Jovanny Mares History of colonoscopy History of cystoscopy with urolift @ [facility] 07/25/20 History of hand surgery Right History of lithotripsy History of open reduction and internal fixation (ORIF) procedure Left index finger ORIF (05/11/16): LMA#5 at [facility] [place] S/P anal fissurectomy Past Anesthesia History No Hx of Anesthesia Complications and No Family Hx of Anesthesia Complications History of PONV No Hx of PONV and No Hx of Motion Sickness Social History Smoking Status: Current some day smoker (occasional cigar) tobacco type: smokeless tobacco Do You Dip or Chew Tobacco: No (quit "a couple years ago") Smoking End Date: quit 30yrs ago Hx Alcohol Use: Yes Alcohol type: beer and wine alcohol intake frequency: a few times a month Hx Substance Use: Yes (medical marijuana) substance use type: marijuana Substance Use Type Other:: Medical marijuana (+card)- 1-2x/week (inhalation)- advised Review of Systems Patient denies chest pain, shortness of breath, dyspnea on exertion, reflux, fever, chills, cough, wheezing, or palpitations. Physical Exam Vital Signs Vitals BP 137/74 P 56 TEMP 97.9 SP02 96% on RA RESP 18 Physical Patient resting comfortably in chair in no acute distress, alert and oriented, responding appropriately throughout visit Full cervical extension range of motion without pain TMD 3.5 finger breadths Mallampati Score 2 Dentition: chipped right upper tooth and several caps/crowns, denies loose teeth, implants or bridges Lungs: normal respiratory effort. Good air movement, clear throughout to auscultation, no adventitious breath sounds Cardiac: regular rate and rhythm, no murmurs noted Carotid arteries: negative bruit bilat Lab Results Anesthesia Preop Results Results Anesthesia Widget: WBC 5.55 K/ul (4.8-10.8) 11/23/22 Hgb 13.8 g/dl (14.0-18.0) L 11/23/22 Hct 40.5 % (42.0-52.0) L 11/23/22 Plt 208 K/uL (130-400) 11/23/22 Na 136 mmol/L (136-145) 11/05/22 K 3.9 mmol/L (3.5-5.1) 11/05/22 Cl 107 mmol/L (98-107) 11/05/22 CO2 25 mmol/L (21-32) 11/05/22 BUN 19 mg/dl (6-23) 11/05/22 Creat 0.88 mg/dl (0.6-1.4) 11/05/22 Glucose Level 121 mg/dl (70-99(Fasting)) H 11/05/22 PT 10.3 Seconds (9.0-12.0) 11/23/22 PTT 26.5 Seconds (21.0-31.0) 11/23/22 INR 0.9 (0.9-1.1) 11/23/22 TSH 1.617 uIu/ml (0.300-4.500) 11/05/22 HA1c 5.4 % (4.5-5.6) 11/05/22 Blood Type O Negative 11/23/22 Antibody Screen NEGATIVE 11/23/22 Testing Electrocardiogram Date: 07/02/22 Sinus bradycardia, rate 57 bpm Left axis deviation LBBB Chest X-Ray Date: 11/23/22 No acute cardiopulmonary findings. Echocardiogram Date: 07/02/22 EF 50-55% Abnormal septal motion Mild cLVH No significant valvular pathology Cardiac Catheterization Date: 05/14/21 LM -normal caliber, no significant disease LAD -medium caliber, angiographically normal. Distal vessel wraps around apex. Medium D1 without disease. Ramusmedium caliber, no significant disease Circumflexmedium caliber, mid segment luminal irregularities. RCA -dominant, large caliber, angiographically normal 1. Angiographically normal coronary arteries 2. Normal intracardiac filling pressure
[2022-12-15] MEDS ORDERED: METOCLOPRAMIDE HCL 10 MG TABLET PO SCH (06:00)
[2022-12-15] MEDS ORDERED: cloNIDine HCL 0.1 MG/24 HR TRANSDERM SYS TD SCH (06:00)
[2022-12-15] MEDS ORDERED: dexAMETHasone 4 MG TAB PO SCH (06:00)
[2022-12-15] MEDS ORDERED: ACETAMINOPHEN 500 MG TAB PO SCH (06:00)
[2022-12-15] MEDS ORDERED: TRANEXAMIC ACID 1,000 MG **IV Pre-op IV SCH (06:00)
[2022-12-15] MEDS ORDERED: ceFAZolin 2000MG 2,000 MG/15 ML SYR IV SCH (06:00)
[2022-12-15] MEDS ORDERED: traMADol HCL 50 MG TABLET PO SCH (06:00)
[2022-12-15] MEDS ORDERED: GABAPENTIN 600 MG DOSE PO SCH (06:00)
[2022-12-15] MEDS ORDERED: LR 60ML/HR IV SCH (06:00)
[2022-12-15] MEDS ORDERED: CeleBREX 200 MG CAP PO SCH (06:00)
[2022-12-15] MEDS ORDERED: FAMOTIDINE 20 MG TAB PO SCH (06:00)
[2022-12-15] MEDS ORDERED: ROPIVACAINE 0.5% HCL/PF 150 MG, BUPIVACAINE 0.75% MPF 20 ML, EPINEPHrine 0.15 MG, Ketor... INFIL SCH (06:00)
[2022-12-15] MEDS ORDERED: oxyCODONE HCL 10 MG TABCR (OxyCONTIN) PO SCH (06:00)
[2022-12-15] MEDS ORDERED: LR 500ML BOLUS, THEN 15ML/HR IV SCH (06:00)
[2022-12-15] MEDS ORDERED: BUPIVACAINE 0.25% PF 30 ML VIAL ONE (06:21)
[2022-12-15] MEDS ORDERED: BUPIVACAINE 0.5 % 5 MG/1 ML PF 10ML VIAL ONE (06:21)
[2022-12-15] MEDS ORDERED: ONDANSETRON INJ 2 MG/ML 2 ML VIAL IV PRN ×2 (06:36→11:57)
[2022-12-15] MEDS ORDERED: ePHEDrine sulfate 50 MG/ML AMP IV PRN (06:36)
[2022-12-15] MEDS ORDERED: ATROPINE SULFATE 0.1 MG/ML 10ML SYR IV PRN (06:36)
[2022-12-15] MEDS ORDERED: fentaNYL citrate PF 100 MCG/2 ML VIAL IV PRN (06:36)
[2022-12-15] MEDS ORDERED: MIDAZOLAM HCL 1 MG/ML 2ML VIAL ONE ×2 (06:37→07:01)
[2022-12-15] MEDS ORDERED: fentaNYL citrate PF 100 MCG/2 ML VIAL ONE (06:37)
--- NOTE | 2022-12-15 06:43 | History & Physical Bridge Note ---
Date of Service December 15, 2022 History & Physical Bridge Note I have examined the patient, reviewed the History & Physical and in the interval since the performance of the History & Physical I have noted the following changes of clinical significance: no changes noted
[2022-12-15] MEDS ORDERED: VANCOMYCIN HCL 1000MG/20ML VIAL ONE (07:05)
[2022-12-15] MEDS ORDERED: ORTHO JOINT ANESTHETIC ONE (07:05)
--- NOTE | 2022-12-15 10:00 | Operative Report ---
Post Operative Report Pre & Post Diagnosis Operation Date: 12/15/22 07:00 Pre-Op Diagnosis: Left Knee Osteoarthritis Post-Op Diagnosis: Left Knee Osteoarthritis I identified the patient and participated in the time-out.: Yes Procedure Operation Date: 12/15/22 07:00 Actual Procedures p Left Total Knee Arthroplasty(Left) - Alfonso Dawn MD Surgeon Alfonso Dawn MD Bioprocess Development Engineer Eva Herman physicians promotional advertising assistant no resident or fellow available Estimated Blood Loss 5 Findings Consistent with Post-Op Diagnosis Specimens Resected bone and soft tissue Anesthesia Type MAC Spinal Regional Complications none Disposition Accompanied Patient To Recovery: No Disposition: Recovery Room Indications Chavo is 62. Severe left knee arthritis refractory to nonsurgical treatment. He wishes to have his knee replaced. Description of Procedure Informed consent. Patient identified. Left knee identified as operative site. I marked with my initials. Preop timeout performed. Preop dose of IV antibiotics given. Positioned supine on the OR table. Anesthetic administered. Bump under the left calf and left hip. Tourniquet left thigh. Exam shows no pathological laxity. Range of motion 0/7/120. Prepped and draped in the usual sterile fashion. DVT prophylaxis Intra-Op with foot pumps. Postop early mobility mechanical devices and Eliquis. Limb exsanguinated with Esmarch. Tourniquet inflated to 275 mmHg. A midline longitudinal incision was made followed by medial parapatellar arthrotomy. An extensile medial release was performed. Soft tissue on the anterior aspect of the distal femur was resected. Flocculent red synovitis was noted throughout the knee and was excised as encountered. The synovial reflection in the lateral gutter was released. There was severe arthritis of the patella with large marginal osteophytes circumferentially which were thoroughly debrided down to the [place] patellar bone. Patellar thickness measured 23 mm. There was grade 3 and 4 chondrosis of the patella. Soft tissue around the patella itself was debrided. The retropatellar fat pad was resected. The knee was able to be flexed with the patella everted and the cruciate ligaments and the remainder of the osteophytes were debrided. There were marginal osteophytes throughout the knee both on the lateral and medial side. There was grade 4 change with wear in the medial central tibia 2-1/2 cm in diameter. The weightbearing area of the medial femoral condyle 2 to 3 cm wide by 4 cm and the length anterior to posterior was eburnated bone. The lateral femoral condyle showed grade 2 and 3 chondrosis. The lateral meniscus was deficient as was the medial meniscus. There was posterior central change of the tibial plateau which I would estimate to be essentially grade 4 lesion. Notch osteophytes removed. ACL was absent. The cruciate remnants and the PCL were excised and the tibia was subluxated. A automatic pilot mechanic hole was drilled into the proximal tibia just in front of the tibial spines. The intramedullary alignment indy was inserted completely. The cutting jig was applied. A 0 degree block. Aligned with the tibial tubercle. Knee was held in neutral rotation and the guide was pinned into place. This was set to resect 10 mm off of the lateral side which corresponded to about a 4 to 6 mm cut on the medial side. The extra medullary alignment indy was utilized to confirm appropriate slope as well as coronal plane alignment. Bisected ankle joint. Intersected second ray. The cut was then made and remaining marginal osteophytes were removed. The tibia was sized to a 3. A automatic pilot mechanic hole was drilled into the distal femur just above the PCL. Slightly more central based upon preop templating. The guide was inserted and a 6 degree left knee valgus angle 14 mm thick cut which was proximal to the collateral ligaments. Cut was made and the extension gap was 10 but tight posteriorly. I went ahead and did a more extensile medial release around the posterior medial corner releasing the semimembranosus as well as the medial head of the posterior medial capsule. I felt that the tightness in extension was secondary to the posterior osteophytes. The epicondylar axis was marked out. The distal femoral sizing guide was applied and sized to a 3. The external rotation drill holes were made and matched the epicondylar axis. The size 3 anterior cutting block was applied. Anterior down. This cut was made protecting the collateral ligaments. The flexion gap was asymmetric. I was confident that the rotation was appropriate based upon the epicondylar axis. The component was not externally rotated. Perhaps this was related to the not insignificant lateral compartment arthritis. To correct this I released the popliteus which gave some increased laxity. I then made multiple perforations into the LCL with an 18-gauge spinal needle and this then resulted in a symmetrical flexion gap of 10 mm in thickness. The box cutting guide was applied lateralized and the cut was made. Large posterior medial and smaller lateral osteophytes were excised. The extension gap was a symmetric 10 mm without springing. Femoral component applied. The tibia was prepared with the keel and punch and trialing was performed which showed full extension no laxity at 0 or 90. Trace MCL laxity and 1+ LCL laxity in mid position. The patella tracked well. The patellar jig was set to preserve 15 mm of bone. The patella cut was made and the component was distal lysed and medialized. Sized with 38. The lug holes were drilled and patellar tracking was slightly off with the no hands technique. This was corrected once the tourniquet was let down and the patellar tracking at that time was fine. The residual thickness of the patella was 14 mm. At the conclusion of the procedure the composite patellar thickness was 22 mm. The trial components were removed the canals were plugged Ortho joint mix injected into the back of the knee copious irrigation was performed and the bony surfaces were meticulously prepared. Soft tissues were kept moist throughout the surgical procedure. 2 bags of Simplex P cement were mixed and then while in a doughy state they were the components were cemented into place femur tibia and then patella. Smears were placed on the posterior condyles. The knee was held in full extension until the cemented hardened and the tourniquet was let down after 110 minutes of inflation. Meticulous hemostasis was performed. The remainder of the Ortho joint mix was injected about the knee. Trialing was again performed and the 10 mm spacer was satisfactory. The knee was subluxated the back the knee was irrigated and cement was removed from the back of the knee as encountered. The final polyethylene was inserted. Patellar tracking was fine. [place] assisted flexion with extensor mechanism closed was approximately 120 degrees. The knee was straight and had full extension. The extensor mechanism was closed with interrupted #2 FiberWire's above the equator the patella and running and interrupted #1 Vicryl below. The skin was closed in layers with 0 and 2-0 Vicryl followed by elaine on the skin. The leg was cleaned with wet and dry sponges and soft sterile dressings applied Xeroform 4 x 4's ABD soft wrap Kobi wrap and a knee immobilizer. Patient was then awakened from anesthesia difficulty and taken to the recovery room in stable condition. The resected bone and soft tissue was sent for specimen. There were no drains. Counts were correct and blood loss is estimated to be 5 cc. TXA given at the beginning of the case. No complications. He will be admitted to the hospital and rehab according to the standard total knee protocol. Components inserted with a J[employer]J PFC Sigma rotating platform knee a size 38 3 peg oval dome patella size 3 left posterior stabilized femur and a size 3 mobile- bearing keeled tibial tray with a 10 mm thick size 3 posterior stabilized polyethylene insert I attest to the content of the Intraoperative Record and any orders documented therein. Any exceptions are noted below.
--- NOTE | 2022-12-15 10:20 | Operative Report ---
Post Operative Report Pre & Post Diagnosis Operation Date: 12/15/22 07:00 Pre-Op Diagnosis: Left Knee Osteoarthritis Post-Op Diagnosis: Left Knee Osteoarthritis I identified the patient and participated in the time-out.: Yes Procedure Operation Date: 12/15/22 07:00 Actual Procedures p Left Total Knee Arthroplasty(Left) - Alfonso Dawn MD Surgeon Alfonso Dawn M.D. [employer] Attendant Eva Herman physicians rn first assistant no resident or fellow available Estimated Blood Loss 5 Findings Consistent with Post-Op Diagnosis DJD left knee Specimens bone and soft tissue Anesthesia Type MAC Spinal Regional Description of Procedure Patient was taken to the operating room and placed under IV sedation with spinal anesthesia and a peripheral nerve block. Timeout was performed. He is given 2 g of IV Ancef for surgical prophylaxis. He was prepped and draped in routine sterile fashion. I was present during the entire case and assisted with positioning, tissue retraction, implantation of hardware, cementing, closure and dressings. Please see Dr. Dawn's operative report for further details regarding today's procedure. Patient was awakened and transferred to the recovery room in stable condition. I attest to the content of the Intraoperative Record and any orders documented therein. Any exceptions are noted below.
--- NOTE | 2022-12-15 10:39 | XRay Report ---
XR knee LT 1 or 2V routine CLINICAL HISTORY: Surgical Post Op TECHNIQUE: 2 views of the right knee were obtained. Comparison: Comparison is made to leg length study 12/03/2022 FINDINGS: Patient is status post total knee arthroplasty with expected postsurgical changes including soft tiss ue swelling and subcutaneous emphysema. No periarticular lucency or hardware fracture is seen. IMPRESSION: Expected postoperative appearance status post placement of total knee arthroplasty. ACT 112: Negative or not required by law. Electronically signed by: Julio César Velázquez M.D. 12/15/2022 10:38 AM
[2022-12-15] MEDS ORDERED: hydrALAZINE HCL 20 MG/ML VIAL IV PRN (11:57)
[2022-12-15] MEDS ORDERED: bisacodyL 10 MG SUPP PR PRN (11:57)
[2022-12-15] MEDS ORDERED: MAGNESIUM HYDROXIDE SUSP 30 ML UDC PO PRN (11:57)
[2022-12-15] MEDS ORDERED: ALPRAZolam 0.5 MG TABLET PO PRN (11:57)
[2022-12-15] MEDS ORDERED: traMADol HCL 50 MG TABLET PO PRN (11:57)
[2022-12-15] MEDS ORDERED: HYDROmorphone INJ 1 MG/ML SYRINGE IV PRN (11:57)
[2022-12-15] MEDS ORDERED: NALOXONE HCL 0.4 MG/1 ML VIAL/CARP IV PRN (11:57)
[2022-12-15] MEDS ORDERED: HYDROmorphone INJ 0.5 MG/0.5 ML SYR IV PRN (11:57)
--- NOTE | 2022-12-15 12:18 | Anesthesiology Progress Note ---
Date of Service December 15, 2022 Anesthesia Post Procedure Vital Signs Vital Signs: Temp Pulse Pulse Resp BP Pulse Ox O2 Del Method 12/15/22 12:14 36.2 C L 55 L 18 148/86 H 96 Room Air 12/15/22 11:50 36.2 C L 53 L 16 121/65 96 Room Air 12/15/22 11:50 36.2 C L 55 L 53 L 16 121/65 96 Room Air 12/15/22 11:30 36.4 C L 55 L 12 124/62 93 Room Air 12/15/22 11:15 52 L 19 128/67 98 Room Air 12/15/22 11:00 53 L 16 129/71 97 Room Air 12/15/22 10:50 53 L 18 127/70 94 Room Air 12/15/22 10:40 36.3 C L 56 L 18 129/73 98 Room Air 12/15/22 10:30 58 L 15 113/58 L 95 Room Air 12/15/22 10:20 56 L 14 122/72 99 Oxymask 12/15/22 10:10 36 C L 57 L 21 115/62 97 Oxymask 12/15/22 05:43 36.6 C 65 20 135/79 95 Room Air O2 Flow Rate 12/15/22 12:14 12/15/22 11:50 12/15/22 11:50 12/15/22 11:30 12/15/22 11:15 12/15/22 11:00 12/15/22 10:50 12/15/22 10:40 12/15/22 10:30 12/15/22 10:20 3 12/15/22 10:10 6 12/15/22 05:43 Pain Intensity Left Knee: Pain Intensity: 3 Transfer of Care Handoff Completed per policy Notes Mental Status: alert / awake / arousable Patient Amnestic to Procedure: Yes Nausea / Vomiting: adequately controlled Pain: adequately controlled Airway Patency, RR, SpO2: stable & adequate BP & HR: stable & adequate Hydration State: stable & adequate Neuraxial Anesthesia: was administered and sensory block is resolving Anesthetic Complications: no major complications apparent and Pt Satisfied with anesthetic care
[2022-12-15] MEDS: SODIUM CHLORIDE 0.9% 1,000 ML IV SCH ×2 (12:34→23:18)
[2022-12-15] MEDS: CHECK CLONIDINE PATCH PLACEMENT SCH ×2 (12:34→12:35)
[2022-12-15] MEDS ORDERED: PROPOFOL IV EMULSION 10 MG/ML 20 ML VIAL IV ONE (13:09)
[2022-12-15] MEDS ORDERED: ONDANSETRON INJ 2 MG/ML 2 ML VIAL ONE (13:09)
[2022-12-15] MEDS ORDERED: LIDOCAINE 2% 2 ML VIAL/AMP(20MG/ML) INFIL ONE (13:10)
[2022-12-15] MEDS: ACETAMINOPHEN 500 MG TAB PO SCH ×2 (13:58→21:48)
[2022-12-15] MEDS: ceFAZolin 2000MG 2,000 MG/15 ML SYR IV SCH ×2 (14:52→23:07)
[2022-12-15] MEDS: oxyCODONE HCL IR 5 MG TAB (IMMEDIATE RELEASE) PO PRN ×2 (15:56→19:59)
--- NOTE | 2022-12-15 15:58 | Orthopedic Progress Note ---
Date of Service December 15, 2022 Assessment & Plan (1) Status post total left knee replacement: Plan: Postop day 0-left total knee arthroplasty by Dr. Dawn Patient may be out of bed, weight-bear as tolerated on left lower extremity with the assistance of a walker and knee immobilizer on left leg when out of bed. Eliquis to start in the morning for DVT prophylaxis. MARCELO stockings and AV impulse boots. Pain medication as prescribed. Regular diet. Home medications have been continued. PT/OT to start tomorrow. May do some bedside exercises taught by nursing overnight. Ice as needed for pain and swelling. Elevation as needed for swelling. Postoperative x-rays were reviewed with patient. All questions were answered. Dr. Dawn present for today's visit. Plan for discharge to his home tomorrow with home health if doing well and pain controlled. Admission and Anticipated Discharge Date Admission Date: December 15, 2022 Subjective Chavo is doing well after his surgery. He ambulated to the bathroom with nursing. Denies any significant pain in his left knee besides in the back. He is not had any postoperative nausea or vomiting. Denies any chest pain or shortness of breath. Physical Exam Musculoskeletal: Exam of his left leg: Postoperative dressings are clean, dry and intact. He has normal strength and range of motion of his left foot and ankle. Dorsalis pedis and posterior tibial pulses are 1+. Sensation is mildly tingly from his spinal anesthesia. Results & Data Vital Signs (Past 12 Hours) Vital Signs Temp Pulse Pulse Pulse Resp BP BP 12/15/22 15:15 36.1 C L 77 18 152/80 H 12/15/22 12:15 12/15/22 14:00 36.2 C L 62 61 18 126/71 12/15/22 13:00 36.2 C L 61 16 129/72 12/15/22 12:30 36.3 C L 62 16 131/75 12/15/22 12:14 36.2 C L 55 L 18 148/86 H 12/15/22 11:50 36.2 C L 53 L 16 121/65 12/15/22 11:50 36.2 C L 55 L 53 L 16 121/65 12/15/22 11:30 36.4 C L 55 L 12 124/62 12/15/22 11:15 52 L 19 128/67 12/15/22 11:00 53 L 16 129/71 12/15/22 10:50 53 L 18 127/70 12/15/22 10:40 36.3 C L 56 L 18 129/73 12/15/22 10:30 58 L 15 113/58 L 12/15/22 10:20 56 L 14 122/72 12/15/22 10:10 36 C L 57 L 21 115/62 12/15/22 05:43 36.6 C 65 20 135/79 Pulse Ox O2 Del Method O2 Flow Rate 12/15/22 15:15 93 Room Air 12/15/22 12:15 Room Air 12/15/22 14:00 95 Room Air 12/15/22 13:00 94 Room Air 12/15/22 12:30 95 Room Air 12/15/22 12:14 96 Room Air 12/15/22 11:50 96 Room Air 12/15/22 11:50 96 Room Air 12/15/22 11:30 93 Room Air 12/15/22 11:15 98 Room Air 12/15/22 11:00 97 Room Air 12/15/22 10:50 94 Room Air 12/15/22 10:40 98 Room Air 12/15/22 10:30 95 Room Air 12/15/22 10:20 99 Oxymask 3 12/15/22 10:10 97 Oxymask 6 12/15/22 05:43 95 Room Air Diagnostic Findings XR knee LT 1 or 2V routine CLINICAL HISTORY: Surgical Post Op TECHNIQUE: 2 views of the right knee were obtained. Comparison: Comparison is made to leg length study 12/03/2022 FINDINGS: Patient is status post total knee arthroplasty with expected postsurgical changes including soft tissue swelling and subcutaneous emphysema. No periarticular lucency or hardware fracture is seen. IMPRESSION: Expected postoperative appearance status post placement of total knee arthroplasty.
[2022-12-15] MEDS ORDERED: TRANEXAMIC ACID / 0.7% NACL 1,000 MG/100 ML BAG IV SCH (16:15)
[2022-12-15] MEDS: KETOROLAC 30 MG/ML VIAL IV SCH ×2 (17:40→23:07)
[2022-12-15] MEDS: DOCUSATE SODIUM 100 MG CAP PO SCH (19:59)
[2022-12-15] MEDS ORDERED: SENNA 8.6 MG TAB PO SCH (21:00)
[2022-12-16] MEDS: ACETAMINOPHEN 500 MG TAB PO SCH (05:43)
[2022-12-16] MEDS: KETOROLAC 30 MG/ML VIAL IV SCH (05:44)
[2022-12-16 06:49] LABS: Hematocrit (blood only) 32.3 % (42.0-52.0); Hemoglobin 11.1 g/dl (14.0-18.0); Mean Corpuscular Hemoglobin 30.9 pg (25.0-34.0); Mean Corpuscular Hgb Conc 34.4 g/dL (32.0-36.0); Mean Platelet Volume 10.8 fL (9.4-12.4); Platelet Count 185 K/uL (130-400); RDW Coefficient of Variation 12.7 % (11.5-14.5); RDW Standard Deviation 41.6 fL (36.4-46.3); Red Blood Count 3.59 M/uL (4.70-6.10); White Blood Count 11.54 K/ul (4.8-10.8)
[2022-12-16 07:24] LABS: BUN Creatinine Ratio 18.9 (10-20); Calcium 8.8 mg/dl (8.6-10.3); Creatinine Clr Calc Pharmacy 104.8 ml/min; Est GFR (African American) 104.2 ml/min; Est GFR (Non-African American) 89.9 ml/min; Potassium 4.2 mmol/L (3.5-5.1)
[2022-12-16] MEDS: DOCUSATE SODIUM 100 MG CAP PO SCH (07:55)
[2022-12-16] MEDS ORDERED: dexAMETHasone 4 MG TAB PO SCH (08:00)
[2022-12-16] MEDS ORDERED: ATORVASTATIN 10 MG TAB PO SCH (09:00)
[2022-12-16] MEDS ORDERED: FEXOFENADINE HCL 180 MG TAB PO SCH (09:00)
[2022-12-16] MEDS ORDERED: MULTIVITAMIN TAB PO SCH (09:00)
[2022-12-16] MEDS ORDERED: TAMSULOSIN HCL 0.4 MG CAP PO SCH (09:00)
[2022-12-16] MEDS ORDERED: FLUoxetine HCL 20 MG CAP PO SCH (09:00)
[2022-12-16] MEDS ORDERED: CHOLECALCIFEROL 1,000 UNITS 25 MCG TAB PO SCH (09:00)
[2022-12-16] MEDS ORDERED: LOSARTAN POTASSIUM 25 MG TAB PO SCH (09:00)
[2022-12-16] MEDS ORDERED: APIXABAN 2.5 MG TAB PO SCH (09:00)
--- NOTE | 2022-12-16 13:25 | Orthopedic Progress Note ---
Date of Service December 16, 2022 Assessment & Plan (1) Status post total left knee replacement: Plan: Doing well. Discussed follow-up wound care bathing medication instructions activity levels things to watch out for. He is okay with PT and OT. Home health services have been arranged. He is aware to take his blood thinner. Suitable for discharge. Labs and vitals are noted. He is doing well. Pain is well controlled. Admission and Anticipated Discharge Date Admission Date: December 15, 2022 Subjective Doing well. Pain is well controlled. Cleared by PT and OT. No chest pain or shortness of breath. Physical Exam Physical Exam: DP is trace. PT 1+. Intact sensation throughout the foot with 5 out of 5 ankle and toe plantarflexion dorsiflexion inversion and eversion strength. Dressing is clean and dry. He does report some numbness along the medial portion of his thigh knee and calf underneath the bandage. He is able to do a controlled straight leg raise Results & Data Vital Signs (Past 12 Hours) Vital Signs Temp Pulse Resp BP Pulse Ox O2 Del Method 12/16/22 07:21 Room Air 12/16/22 07:22 36.4 C L 66 16 148/78 H 96 Room Air 12/16/22 02:27 36.3 C L 61 16 119/67 94 Room Air Laboratory Results Laboratory Results WBC 11.54 K/ul (4.8-10.8) H 12/16/22 05:54 RBC 3.59 M/uL (4.70-6.10) L 12/16/22 05:54 Hgb 11.1 g/dl (14.0-18.0) L 12/16/22 05:54 Hct 32.3 % (42.0-52.0) L 12/16/22 05:54 MCV 90.0 fL (80.0-100.0) 12/16/22 05:54 MCH 30.9 pg (25.0-34.0) 12/16/22 05:54 MCHC 34.4 g/dL (32.0-36.0) 12/16/22 05:54 RDW Std Deviation 41.6 fL (36.4-46.3) 12/16/22 05:54 RDW Coeff of Jhonny 12.7 % (11.5-14.5) 12/16/22 05:54 Plt Count 185 K/uL (130-400) 12/16/22 05:54 MPV 10.8 fL (9.4-12.4) 12/16/22 05:54 Sodium 139 mmol/L (136-145) 12/16/22 05:54 Potassium 4.2 mmol/L (3.5-5.1) 12/16/22 05:54 Chloride 108 mmol/L (98-107) H 12/16/22 05:54 Carbon Dioxide 25 mmol/L (21-32) 12/16/22 05:54 Anion Gap 6 (3-11) 12/16/22 05:54 BUN 17 mg/dl (6-23) 12/16/22 05:54 Creatinine 0.90 mg/dl (0.6-1.4) 12/16/22 05:54 Est Cr Clr Drug Dosing 104.8 ml/min 12/16/22 05:54 Est GFR ( Amer) 104.2 ml/min 12/16/22 05:54 Est GFR (Non-Af Amer) 89.9 ml/min 12/16/22 05:54 BUN/Creatinine Ratio 18.9 (10-20) 12/16/22 05:54 Glucose 117 mg/dl (70-99(Fasting)) H 12/16/22 05:54 Calcium 8.8 mg/dl (8.6-10.3) 12/16/22 05:54 Impressions Knee X-Ray 12/15/22 10:16 XR knee LT 1 or 2V routine CLINICAL HISTORY: Surgical Post Op TECHNIQUE: 2 views of the right knee were obtained. Comparison: Comparison is made to leg length study 12/03/2022 FINDINGS: Patient is status post total knee arthroplasty with expected postsurgical changes including soft tissue swelling and subcutaneous emphysema. No periarticular lucency or hardware fracture is seen. IMPRESSION: Expected postoperative appearance status post placement of total knee arthroplasty. ACT 112: Negative or not required by law. Electronically signed by: Julio César Velázquez M.D. 12/15/2022 10:38 AM
--- NOTE | 2022-12-17 08:40 | Discharge Summary ---
Date of Service December 17, 2022 Discharge Data Procedures Performed Operation Date: 12/15/22 07:00 Actual Procedures p Left Total Knee Arthroplasty(Left) - Alfonso Dawn MD Hospital Course (1) Status post total left knee replacement: Patient was kept in observation at [facility] after undergoing an elective left total knee arthroplasty by Dr. Dawn on December 15, 2022. Surgery was performed with a spinal anesthetic and peripheral nerve block. He was given 2 g of IV Ancef for surgical prophylaxis which was continued for 24 hours after her procedure. He tolerated the surgery well without any intraoperative complications. In the recovery room x-rays were obtained of his left knee which showed a stable left knee prosthesis. He was allowed out of bed, weight-bear as tolerated with a knee immobilizer and the assistance of a walker. He was given IV Dilaudid, Tylenol, oxycodone, tramadol, Toradol as needed for postoperative pain control. His home medications were continued. He was given a regular diet and did not develop any postoperative nausea or vomiting. CBC and BMP was performed on postoperative day 1 and his labs were stable. Vital signs remained stable during his inpatient stay. Physical therapy and Occupational Therapy consults were placed. He was seen and evaluated on postoperative day 1 and was safe out of bed. Eliquis 2.5 mg was started on postoperative day 1 for DVT prophylaxis. He also had AV impulse boots and MARCELO stockings. The Eliquis will be continued for 2 to 4 weeks after his procedure. He was instructed to ice and elevate. He did exercises as taught by nursing and her therapist at bedside. Case management was involved for disposition needs. He had home health arranged preoperatively. On December 16, 2020 he was deemed safe for discharge and was discharged to his home in stable condition with his family and home health arrangements. Discharge instructions were reviewed.
== END 2022-12-16 11:42 | disposition home health service (06) ==
LOC: 3E 05:19 → ASU 05:19

== ENCOUNTER 2023-12-10 07:28 | Observation (INO) ==
--- NOTE | 2023-11-08 13:22 | PAT Medication Instructions ---
Medication Instructions Date of Service November 08, 2023 Home Medications Medication Instructions Recorded fluoxetine 20 mg capsule (Prozac) 20 mg PO QAM #90 caps 02/16/23 atorvastatin 10 mg tablet 10 mg PO QAM #90 tabs 08/16/23 losartan 25 mg tablet 25 mg PO DAILY #90 tabs 08/16/23 alfuzosin 10 mg tablet,extended 10 mg PO QAM 90 days #90 tabs 08/18/23 release 24 hr (Uroxatral) fexofenadine-pseudoephedrine ER 180 mg-240 mg tablet,ext.release 24 hr (Radha-D 24 Hour) 1 tab PO QAM PRN cholecalciferol (vitamin D3) 25 mcg (1,000 unit) tablet (Vitamin D3) 25 mcg PO QAM multivitamin 1 tab PO QAM fluoxetine 20 mg capsule (Prozac) 20 mg PO QAM alprazolam 0.5 mg tablet 0.5 mg PO DAILY PRN atorvastatin 10 mg tablet 10 mg PO QAM losartan 25 mg tablet 25 mg PO DAILY alfuzosin 10 mg tablet,extended release 24 hr (Uroxatral) 10 mg PO QAM Medical Marijuana 1 dose inhalation YEARLY PRN Continue as directed alprazolam 0.5 mg tablet 0.5 mg PO DAILY PRN(if needed) DO NOT take the morning of surgery fexofenadine-pseudoephedrine ER 180 mg-240 mg tablet,ext.release 24 hr (Radha- D 24 Hour) 1 tab PO QAM PRN cholecalciferol (vitamin D3) 25 mcg (1,000 unit) tablet (Vitamin D3) 25 mcg PO QAM multivitamin 1 tab PO QAM losartan 25 mg tablet 25 mg PO DAILY Medical Marijuana 1 dose inhalation YEARLY PRN Take morning of surgery With a small sip of water, OTHERWISE NOTHING TO EAT OR DRINK AFTER MIDNIGHT: fluoxetine 20 mg capsule (Prozac) 20 mg PO QAM atorvastatin 10 mg tablet 10 mg PO QAM alfuzosin 10 mg tablet,extended release 24 hr (Uroxatral) 10 mg PO QAM Other Notes If you have any questions please call us at [phone] or [phone] or [phone] or [phone]
--- NOTE | 2023-11-16 11:15 | Anesthesiology Consultation ---
Date of Service November 16, 2023 Assessment & Plan (1) Encounter for pre-operative examination: - Infectious disease screening: Per assessment on 11/16/23: No known recent infectious disease contacts or current infectious disease symptoms. - Outpatient joint assessment: Pt currently scheduled for inpatient pathway. If surgeon requests review for outpatient joint pathway, patient is not recommended candidate for outpatient joint program from anesthesia standpoint based on available information. - S/P Left TKA (12/15/22): SAB at L3-4 (1 attempt) + regional at [facility]. - Allergy visit (08/31/22): "Allergic contact dermatitis.. Patch testing to metals was negative. He was also patch tested to a TRUE test panel and these were negative as well. As result, I do not have any worries about any exposures as part of surgery that would exacerbate an allergic contact dermatitis and he is cleared to get which ever product orthopedics would prefer.. Allergic rhinitis due to animals.. He will contact me if his allergic rhinitis symptoms worsen.. Chronic idiopathic urticaria.. He has not had any more episodes of idiopathic angioedema. If this ever comes back again, I recommend that he start taking a second-generation antihistamine like cetirizine and he will give me a call. Plan.. I will see him back on an as-needed basis." - Cardiology visit (10/28/23): "63 year old male with a history of hypertension, hyperlipidemia, sleep apnea, obesity, and LBBB who presents for preoperative cardiovascular evaluation prior to right knee replacement on 12/10/[address] Jones. He is currently stable and asymptomatic from a cardiovascular standpoint with no anginal symptoms occurring at >4 METS of activity. He has no evidence of CHF. Most recent echo in June 2023 demonstrated preserved LV systolic function with no significant valvular abnormality. He is therefore at an acceptable risk to proceed with upcoming surgery without any additional cardiovascular testing or intervention." - Patient acceptable risk for surgery pending most recent PCP office visit note ([facility], appt 11/02- note in draft). Chart Review Chart Review: Patient seen in Pre Admission Testing Teaching & Discussion Pre-Anesthesia Teaching/Discussion Notes: Instructed NPO after midnight before surgery,except medications with 15 cc of water. Medication instructions provided according to the PAT guidelines. History Surgery Operation Date: 12/10/23 12:00 Proposed Procedures p Right Total Knee Arthroplasty - Yohan Jones, Height/Weight Height: 5 ft 10 in Weight: 116.8 kg Allergies Allergy/AdvReac Type Severity Reaction Status Date / Time No Known Drug Allergies Allergy Unknown Verified 11/03/23 13:58 Medications Home Medications Medication Instructions Recorded Confirmed Last Taken fexofenadine-pseudoephedrine ER 1 tab PO QAM PRN Allergy Symptoms 07/18/20 11/03/23 07/03/23 180 mg-240 mg tablet,ext.release 24 hr (Radha-D 24 Hour) cholecalciferol (vitamin D3) 25 25 mcg PO QAM 11/16/22 11/03/23 07/03/23 mcg (1,000 unit) tablet (Vitamin D3) multivitamin 1 tab PO QAM 11/16/22 11/03/23 07/03/23 atorvastatin 10 mg tablet 10 mg PO QAM #90 tabs 08/16/23 11/03/23 Unknown losartan 25 mg tablet 25 mg PO DAILY #90 tabs 08/16/23 11/03/23 Unknown alfuzosin 10 mg tablet,extended 10 mg PO QAM 90 days #90 tabs 08/18/23 11/03/23 Unknown release 24 hr (Uroxatral) Medical Marijuana 1 dose inhalation YEARLY PRN 11/03/23 11/03/23 Unknown Anxiety alprazolam 0.5 mg tablet 0.5 mg PO DAILY PRN Anxiety #30 11/11/23 Unknown tabs fluoxetine 20 mg capsule (Prozac) 20 mg PO QAM #90 caps 11/11/23 Unknown Past Medical History Medical History Anxiety Depression Diverticulitis Hx Enlarged prostate History of basal cell cancer s/p excision History of colon polyps History of COVID-19 Suspected COVID 02/2020 (spouse tested positive/pt did not personally get tested)- symptoms at time of low grade fever, chills, body aches, decreased smell > recovered at home/symptoms resolved HTN (hypertension) Hyperlipidemia Hyperlipidemia Idiopathic urticaria H/o angioedema 5+ years ago followed with immunology and was d/c by [facility] Left bundle branch block (LBBB) Dx 04/2021 Follows with [facility] cardio Nephrolithiasis Hx, no recent/current issues Obesity Osteoarthritis Sleep apnea "Mild" > no device Exercise / Class Metabolic Activity II 4-5 Yardwork/Stairs/Walk up hill Past Family History Family History Grandfather Colorectal cancer Mother Rheumatoid arthritis Other No family history of adverse response to anesthesia Denies family history of Ovarian cancer Prostate cancer Myocardial infarction Breast cancer Past Surgical History Surgical History History of cardiac cath 04/2021- no stents History of colonoscopy History of cystoscopy + urolift, [facility] 07/25/20 History of hand surgery Right History of lithotripsy History of open reduction and internal fixation (ORIF) procedure Left index finger ORIF (05/11/16): LMA#5 at [facility] History of total left knee replacement S/P anal fissurectomy S/P urological surgery Past Anesthesia History No Hx of Anesthesia Complications and No Family Hx of Anesthesia Complications History of PONV No Hx of PONV and Hx of Motion Sickness Social History Smoking Status: Never smoker tobacco type: smokeless tobacco Do You Dip or Chew Tobacco: Yes (Several times/week - Advised none DOS) Hx Alcohol Use: Yes Alcohol type: beer and hard liquor alcohol intake frequency: a few times a week Hx Substance Use: Yes substance use type: marijuana (Medical marijuana (+card)- 1-2x/week (inhalation)) Review of Systems Patient denies chest pain, shortness of breath, dyspnea on exertion, fever, chills, cough, wheezing. Physical Exam Vital Signs BP 128/80 P 63 TEMP 97.6 SP02 95%RA RESP 16 Physical Full cervical extension range of motion. Full TMJ range of motion. TMD > 3.5 finger breaths Mallampati Score II Dentition: missing molar, + crowns Lungs: clear throughout to auscultation Cardiac: regular rate and rhythm, no murmurs noted Spine: normal Carotid arteries: negative bruit Extremities: no LE edema Lab Results Anesthesia Preop Results Results Anesthesia Widget: WBC 5.32 K/ul (4.8-10.8) 11/16/23 Hgb 14.0 g/dl (14.0-18.0) 11/16/23 Hct 39.8 % (42.0-52.0) L 11/16/23 Plt 208 K/uL (130-400) 11/16/23 Na 138 mmol/L (136-145) 11/01/23 K 4.6 mmol/L (3.5-5.1) 11/01/23 Cl 104 mmol/L (98-107) 11/01/23 CO2 27 mmol/L (21-32) 11/01/23 BUN 14 mg/dl (6-23) 11/01/23 Creat 0.94 mg/dl (0.6-1.4) 11/01/23 Glucose Level 111 mg/dl (70-99(Fasting)) H 11/01/23 PT 10.4 Seconds (9.0-12.0) 11/16/23 PTT 27 Seconds (21-31) 11/16/23 INR 1.0 (0.9-1.1) 11/16/23 HA1c 5.3 % (4.5-5.6) 11/01/23 Blood Type O Negative 11/16/23 Antibody Screen NEGATIVE 11/16/23 Testing Electrocardiogram Date: 07/03/23 SB at 59bpm. LAD. LBBB. No signficant change compared to 11/25/22 per crop picker comparison. Echo done 07/06/23. Chest X-Ray Date: 07/03/23 FINDINGS: Cardiac silhouette is enlarged. No pneumothorax, pleural effusion, airspace consolidation or pulmonary edema. Bones of the chest appear grossly intact. IMPRESSION: No acute process. Echocardiogram Date: 07/06/23 EF 55-60%. Grade 1 diastolic dysfunction. No regional wall motion abnormality. Abnormal (paradoxical) septal motion consistent with LBBB. There is no thrombus. Mild LAD. Mild TR. Borderline aortic root dilatation. The ascending aorta and aortic arch are normal in size. Cardiac Catheterization Date: 05/14/21 Summary: 1. Angiographically normal coronary arteries 2. Normal intracardiac filling pressure Recommendations: Continued ASCVD risk factor modification. Additional work-up for noncardiac causes of recent exertional symptoms.
[~2023-12-10 07:28] MED LIST changes: -ALFU10TA2 PO; -ASPI-232 PO; -ATOR10TA82 PO; +BUPIVACAINE 0.5 % 5 MG/1 ML PF 10ML VIAL ONE; -DIPH1TAB87 PO; -FEXO1TAB46 PO; -FLUO20CA35 PO; -MISCCAP80 PO; -MULTTAB PO; -OMEG10007 PO; -RANI150T85 PO; +ROPIVACAINE 0.5% 5 MG/ML 30 ML VIAL ONE; -SENNTAB23 PO; -[UNRECOGNIZED DRUG - OTHER] PO
[2023-12-10] MEDS ORDERED: fentaNYL citrate PF 100 MCG/2 ML VIAL ONE (07:45)
[2023-12-10] MEDS ORDERED: MIDAZOLAM HCL 1 MG/ML 2ML VIAL ONE ×2 (07:46)
--- NOTE | 2023-12-10 08:07 | History & Physical Bridge Note ---
Date of Service December 10, 2023 History & Physical Bridge Note I have examined the patient, reviewed the History & Physical and in the interval since the performance of the History & Physical I have noted the following changes of clinical significance: no changes noted
[2023-12-10] MEDS: dexAMETHasone**PF** 10 MG/ML VIAL IV SCH (08:11)
[2023-12-10] MEDS: ACETAMINOPHEN 500 MG TAB PO SCH ×2 (08:11→15:28)
[2023-12-10] MEDS: LR 60ML/HR IV SCH (08:12)
[2023-12-10] MEDS: GABAPENTIN 300 MG CAP PO SCH (08:12)
[2023-12-10] MEDS: FAMOTIDINE 20 MG TAB PO SCH (08:12)
[2023-12-10] MEDS: LR 500ML BOLUS, THEN 15ML/HR IV SCH (08:25)
[2023-12-10] MEDS ORDERED: ePHEDrine sulfate 50 MG/ML AMP IV PRN (08:41)
[2023-12-10] MEDS ORDERED: ATROPINE SULFATE 0.1 MG/ML 10ML SYR IV PRN (08:41)
[2023-12-10] MEDS ORDERED: ONDANSETRON INJ 2 MG/ML 2 ML VIAL IV PRN ×2 (08:41→12:31)
[2023-12-10] MEDS ORDERED: fentaNYL citrate PF 100 MCG/2 ML VIAL IV PRN (08:41)
[2023-12-10] MEDS: TRANEXAMIC ACID 1,000 MG **IV Pre-op IV SCH (08:46)
[2023-12-10] MEDS: ceFAZolin 2000MG 2,000 MG/15 ML SYR IV SCH ×2 (09:04→16:36)
[2023-12-10] MEDS ORDERED: ePHEDrine sulfate 50 MG/5 ML SYR ONE (09:32)
[2023-12-10] MEDS: ROPIV 0.5% 246mg, Ketorolac 30mg, EPINEPHrine 0.5mg in NSS INFIL SCH (09:43)
[2023-12-10] MEDS ORDERED: PROPOFOL IV EMULSION 10 MG/ML 20 ML VIAL IV ONE ×2 (09:55→10:06)
[2023-12-10] MEDS ORDERED: LIDOCAINE 2% 2 ML VIAL/AMP(20MG/ML) INFIL ONE (09:55)
[2023-12-10] MEDS: TRANEXAMIC ACID 1,000 MG **IV Intra-op IV SCH (10:13)
--- NOTE | 2023-12-10 10:13 | Operative Report ---
PG Post Operative Report Pre & Post Diagnosis Operation Date: 12/10/23 09:00 Pre-Op Diagnosis: Degenerative Joint Disease Right Knee Post-Op Diagnosis: Degenerative Joint Disease Right Knee I identified the patient and participated in the time-out.: Yes Procedure Operation Date: 12/10/23 09:00 Actual Procedures p Right Total Knee Arthroplasty(Right) - Yohan Jones DO Surgeon Yohan Jones DO Nurse Orthopaedic Yohan La PA-C Estimated Blood Loss 30 Findings Consistent with Post-Op Diagnosis Specimens Right femoral tibial bone Description of Procedure Implants used: I used a Ed[employer] Persona total knee arthroplasty system with a size 6 standard PS femur, E tibia, 34 oval patella, and a size 14 CPS polyethylene bearing. All components were cemented in place with Biomet cement. Francois spencer [facility] for the above procedure. He was seen in the preoperative holding area and the operative extremity was identified and signed. He was given a preoperative antibiotic, TXA, a spinal anesthetic and an adductor nerve block. He was taken back to the operating room and laid on the table in supine position. He was given basic sedation. The operative knee was then prepped and draped in sterile fashion. A timeout was done, and the patient and the operative extremity was properly identified. A midline incision was made directly over the patella. Dissection was taken down to the extensor mechanism. A subvastus arthrotomy was used. The medial retinaculum was released and the fat pad was mostly excised. The knee was flexed and the ACL, PCL, and meniscus were removed. A drill was sent down the center of the femoral canal followed by an intramedullary indy. Off that indy a distal femoral cutting block was placed. 9 mm was resected off the distal femur at 5 of valgus. A posterior referencing AP sizing guide was then placed on the distal femur. The femur measured to be a size 6. 2 drill holes were placed in 3 of external rotation. A 4-in-1 cutting block was then impacted into place. Anterior, posterior, and chamfer cuts were then made. The proximal tibia was then exposed. An external tibial alignment guide was placed. A tibial cut guide was then anchored in place and the proximal tibia was then resected. The posterior aspect of the knee was then opened up and any additional meniscus fragments and osteophytes were removed. The tibia measured to be a size E. The tibial plate was then placed in the appropriate rotation and the tibia was drilled and punched. Trial components were then placed. I used a size 14 CPS polyethylene insert. The knee was brought through a full range of motion and felt to be stable. The peg holes for the femoral component were then drilled. The patella was then everted and 9 mm was resected off the posterior aspect of the patella. The patella measured to be a size 34 oval. 3 peg holes were then drilled. A trial patella was placed. The knee was once again brought through a full range of motion and felt to be stable. Trial components were then removed. The surrounding soft tissues were injected with 100 cc of an orthopedic pain control cocktail. All components were then cemented into place with Biomet cement. The final polyethylene insert was then snapped into place. Once cement was dry the tourniquet was deflated. Hemostasis was obtained. A dilute betadyne lavage was then done for 3 minutes. The joint was then irrigated with normal saline solution. The subvastus arthrotomy was then closed with #1 Vicryl suture. The skin was closed with 2-0 Vicryl, 3-0V lock suture, and elaine. A soft compressive dressing was placed. He was then transferred to a hospital bed and taken to the postanesthesia care unit in stable condition. He tolerated the procedure well. Yohan La PA-C, was present for the entire procedure. He was critical for patient positioning, prepping, draping, retraction exposure, wound closure and application of sterile dressing. I attest to the content of the Intraoperative Record and any orders documented therein. Any exceptions are noted below.
--- NOTE | 2023-12-10 12:02 | XRay Report ---
TWO VIEWS RIGHT KNEE CLINICAL HISTORY: Postoperative examination. FINDINGS: AP and crosstable lateral portable views of the right knee are obtained. A right knee arthr oplasty is in near anatomic alignment. There has been undersurface remodeling of the patella. No acut e fracture is seen. There are expected postoperative changes around the knee including skin clips, so ft tissue edema, and subcutaneous gas. IMPRESSION: Expected postoperative changes status post right knee arthroplasty. No acute fracture is seen. ACT 112: Negative or not required by law. Electronically signed by: Gian Kelly M.D. 12/10/2023 12:01 PM
[2023-12-10] MEDS ORDERED: bisacodyL 10 MG SUPP PR PRN (12:31)
[2023-12-10] MEDS ORDERED: MAGNESIUM HYDROXIDE SUSP 30 ML UDC PO PRN (12:31)
[2023-12-10] MEDS ORDERED: ALPRAZolam 0.5 MG TABLET PO PRN (12:31)
[2023-12-10] MEDS ORDERED: HYDROmorphone INJ 0.5 MG/0.5 ML SYR IV PRN (12:31)
[2023-12-10] MEDS ORDERED: NALOXONE HCL 0.4 MG/1 ML VIAL/CARP IV PRN (12:31)
[2023-12-10] MEDS ORDERED: METOCLOPRAMIDE HCL INJ 5 MG/ML 2 ML VIAL IV PRN (12:31)
[2023-12-10] MEDS: ORTHO JOINT ANESTHETIC ONE (13:03)
[2023-12-10] MEDS: TAMSULOSIN HCL 0.4 MG CAP PO SCH (13:11)
[2023-12-10] MEDS: KETOROLAC 30 MG/ML VIAL IV SCH (13:31)
--- NOTE | 2023-12-10 14:21 | Anesthesiology Progress Note ---
Date of Service December 10, 2023 Anesthesia Post Procedure Vital Signs Vital Signs: Temp Pulse Pulse Resp BP Pulse Ox O2 Del Method 12/10/23 13:35 65 16 135/80 98 Room Air 12/10/23 13:01 57 L 16 137/82 97 Room Air 12/10/23 12:32 36.4 C L 59 L 16 138/77 97 Room Air 12/10/23 12:20 57 L 15 137/71 96 Room Air 12/10/23 12:10 56 L 19 129/65 95 Room Air 12/10/23 12:00 57 L 18 134/72 96 Room Air 12/10/23 11:50 56 L 13 103/86 99 Room Air 12/10/23 11:40 56 L 19 146/84 H 97 Room Air 12/10/23 11:30 53 L 19 136/69 95 Room Air 12/10/23 11:20 58 L 17 127/71 95 Room Air 12/10/23 11:10 57 L 16 131/69 96 Room Air 12/10/23 11:00 58 L 17 124/60 97 Room Air 12/10/23 10:50 36.3 C L 57 L 22 128/69 93 Room Air 12/10/23 10:40 58 L 19 127/59 L 97 Room Air 12/10/23 10:32 36.4 C L 59 L 16 116/61 96 Room Air 12/10/23 07:49 36.6 C 58 L 20 137/82 96 Room Air Notes Mental Status: alert / awake / arousable Patient Amnestic to Procedure: Yes Nausea / Vomiting: adequately controlled Pain: adequately controlled Airway Patency, RR, SpO2: stable & adequate BP & HR: stable & adequate Hydration State: stable & adequate Neuraxial Anesthesia: was administered and sensory block is resolving Anesthetic Complications: no major complications apparent
[2023-12-10] MEDS: oxyCODONE HCL IR 5 MG TAB (IMMEDIATE RELEASE) PO PRN (16:55)
[2023-12-10] MEDS: ASPIRIN 81 MG ECTAB PO SCH (21:31)
[2023-12-10] MEDS: DOCUSATE SODIUM 100 MG CAP PO SCH (21:31)
[2023-12-10 22:48] VITALS: RESP 18
[2023-12-10 23:58] VITALS: TEMP 97.7
[2023-12-11] MEDS: SENNA 8.6 MG TAB PO SCH (00:42)
--- NOTE | 2023-12-11 06:17 | Orthopedic Progress Note ---
Date of Service December 11, 2023 Assessment & Plan (1) Status post right knee replacement: Overall he is doing very well. He is not having much pain in the right knee. He will be seen by physical therapy today for ambulation and range of motion exercises. The nursing staff can change his dressing after physical therapy. He is on aspirin for DVT prophylaxis. He can be discharged home later today. He will follow-up orthopedics in 2 weeks. Pallavi Parrish is seen and examined at bedside this morning. Overall he is doing very well. He is not having much pain in the right knee. Has been up and ambulating to the bathroom. He has no complaints.. Review of Systems All systems reviewed & are unremarkable except as noted in HPI & below. Physical Exam On physical exam of the right knee, the dressing is clean and dry. His leg is out full extension. He has active dorsiflexion plantarflexion of his right ankle.. Results & Data Results & Data Laboratory Results . Diagnostic Findings Postoperative x-rays of the right knee show the prosthesis to be in anatomic alignment without any evidence of fracture complication, or loosening.. PG Care Time/CCT Total # of Minutes Spent Total Time Spent with Patient: Total time spent is greater than 50% in coordination of care (as documented) at patient's floor/unit and/or counseling patient: Coding Level of Care Code 14155 Post Operative Follow-Up Diagnoses Status post right knee replacement Z96.651
--- NOTE | 2023-12-11 06:18 | Discharge Summary ---
Date of Service December 11, 2023 Principal Diagnosis Same as "Discharge Diagnosis" noted below under Discharge Instructions. Discharge Exam On physical exam of the right knee, the dressing is clean and dry. His leg is out full extension. He has active dorsiflexion plantarflexion of his right ankle.. Discharge Data Procedures Performed Operation Date: 12/10/23 09:00 Actual Procedures p Right Total Knee Arthroplasty(Right) - Yohan Jones DO Ordered Studies 12/10/23 05:00 US - OR guided needle placemen Routine Hospital Course (1) Status post right knee replacement: On December 10, 2023 Francois arrived at [facility] and underwent a right knee replacement without complication. He had a spinal anesthetic. Postoperatively he was started on aspirin for DVT prophylaxis and transferred to the general orthopedic floors. His hospital course was uneventful. On postop day #1, his vital signs were stable and his pain was well-controlled. He was able to participate well with physical therapy doing ambulation and range of motion exercises. He was then discharged to home. He will follow-up orthopedics in 2 weeks. PG Care Time/CCT Total # of Minutes Spent Total Time Spent with Patient: Total time spent is greater than 50% in coordination of care (as documented) at patient's floor/unit and/or counseling patient: Discharge Plan Discharge Items Patient Disposition: Home - Self-Care Reason For Visit: Degenerative Joint Disease Right Knee Discharge Diagnosis: Right knee replacement Activity: Per Instructions section Non-emergency contact: Surgeon Call non-emergency contact if: your wound has increased redness and your wound has increased drainage Follow-up/Referrals: Pro,Jake Martinez MD [Primary Care Provider] - Diet: Regular Addtl Attending Provider Instructions: Activity and Therapy Recommendations: * If you are using [facility] then therapy will be provided at your home until they feel you have accomplished all of your goals. * If you are using [facility] then Physical Therapy will be provided until they feel you are ready to start Outpatient Physical Therapy. * If you are not using home therapy then Outpatient Physical Therapy should start about 3-5 days from your day of surgery. Therapy will last about 6-10 weeks * It is important not to put a pillow under your knee when you are relaxing or sleeping. It is just as important to make sure you are getting your knee perfectly straight as it is to regain your knee bend. * You were shown a series of exercises in the hospital. Do these exercises three times each day including the exercises you were shown in physical therapy. * Get up and walk several times each day. For the first four weeks, try not to stand or walk for more than one hour at a time. If you do stand or walk for more than one hour, you will not hurt anything, but your leg will likely swell. * As you feel comfortable, you may change from the walker or crutches to a cane and then to independent walking. Medications: * Narcotic You will likely be sent home from the hospital with a prescription for the narcotic pain medication that worked best throughout your stay. * Cefadroxil -take the antibiotic twice a day for 10 days to help prevent infection. * Aspirin Most patients will be required to take Aspirin 81mg twice a day for 6 weeks after surgery. This is obtained [id number] and a prescription is not necessary. * Other medications may be prescribed for specific circumstances. If you have any questions, please call the office at . * Resume previous home medications unless otherwise instructed TEDs/Elastic Stockings: The white elastic stockings help limit swelling and prevent blood clots from forming in your legs.~ The more you wear them, the more they work. Wear them for six weeks. Dressing Care: The dressing can be changed after physical therapy on postop day #1. Daily dry dressing changes for a few days, especially if the incision is still draining some. If the incision is not draining then you may leave the elaine open to air. If there is a little bit of drainage or if the elaine are getting stuck on your clothing then cover the incision with a dry dressing. The elaine will be removed at your 2 week follow-up appointment. Showering: You may shower 5 days from the day of surgery as long as the incision is no longer draining. You may shower with the elaine exposed. Let soapy water run over the elaine and pat them dry. Do not scrub or soak the incision. Diet: You may resume your previous diet. Things To Watch For: * Drainage from the incision site that occurs more than one week after your surgery. * Increased redness at the incision site. * Fever above 102 degrees Fahrenheit. * Unusual chest pain or shortness of breath. * Call [facility] at with any of the above problems Follow-Up Visit: Follow-up with Dr. Jones's PA (Yohan La) 2-3 weeks after your day of surgery. He will remove your elaine and answer any questions. If you have any additional questions or concerns, Dr Jones is usually in the office at the same time and will be available An appointment was probably scheduled when you signed-up for surgery in the office. If you have any questions call Office Instructions: More detailed instructions as well as Frequently Asked Questions were provided in a folder by our office when you signed-up for surgery. Please review these instructions when you get home. If you have any further questions or concerns, please feel free to call the office at [phone] Pending Studies at Discharge: No Stand-Alone Forms: [facility] [employer], Smoking Cessation Medications and DC Order Prescriptions: New oxycodone 5 mg Tablet 5 mg PO Q4H PRN (Reason: pain) Qty: 30 0RF cefadroxil 500 mg capsule 500 mg PO BID 10 Days Qty: 20 0RF aspirin 81 mg Tablet,Delayed Release (Dr/Ec) 81 mg PO BID 42 Days Qty: 0 0RF Continued atorvastatin 10 mg tablet 10 mg PO QAM Qty: 90 3RF losartan 25 mg tablet 25 mg PO DAILY Qty: 90 3RF alfuzosin [Uroxatral] 10 mg tablet extended release 24 hr 10 mg PO QAM 90 Days Qty: 90 3RF Rx Instructions: administer after the same meal each day fluoxetine [Prozac] 20 mg capsule 20 mg PO QAM Qty: 90 3RF alprazolam 0.5 mg tablet 0.5 mg PO DAILY PRN (Reason: Anxiety) Qty: 30 0RF fexofenadine-pseudoephedrine [Radha-D 24 Hour] 180-240 mg Tablet Extended Release 24 Hr 1 tab PO QAM PRN (Reason: Allergy Symptoms) multivitamin Tablet 1 tab PO QAM cholecalciferol (vitamin D3) [Vitamin D3] 25 mcg (1,000 unit) Tablet 25 mcg PO QAM Medical Marijuana 1 dose inhalation YEARLY PRN (Reason: Anxiety) Discharge Orders: Discharge Order (Routine); Ordered 10/26/24 Ordered By: Yohan Jones Admission Data Admit Date/Time: 12/10/23 10:34 Attending Provider: Yohan Jones Admit Provider: Yohan Jones Primary Care Provider: Jake Mujica
[2023-12-11 07:31] VITALS: PULSE 55; O2SAT 95
[2023-12-11] MEDS: dexAMETHasone 4 MG TAB PO SCH (07:48)
[2023-12-11] MEDS: ATORVASTATIN 10 MG TAB PO SCH (07:49)
[2023-12-11] MEDS: LOSARTAN POTASSIUM 25 MG TAB PO SCH (07:50)
[2023-12-11] MEDS: FLUoxetine HCL 20 MG CAP PO SCH (07:50)
[2023-12-11] MEDS: MULTIVITAMIN TAB PO SCH (07:51)
[2023-12-11 10:02] VITALS: BP 152/78
== END 2023-12-11 10:51 | disposition home or self-care (01) ==
LOC: ASU 07:28 → 3N 07:28